=== PATIENT | male | born 1950 | race Caucasian/White ===

== ENCOUNTER 2020-03-31 14:58 | Outpatient (CLI) | payer MEDICARE, SELFPAY ==
[2020-03-31 16:35] LABS: Creatinine Urine, Random 79 mg/dL (39-259); Microalbum Creatinine Ratio Ur 38 mg/dL (0-20); Microalbumin Random Urine 3 ug/dL (0-20)
[2020-03-31 16:41] LABS: Estmated Average Glucose 117; Hemoglobin A1C 5.7 % (4.0-6.0)
[2020-03-31 17:04] LABS: Alanine Aminotransferase 21 U/L (0-41); Albumin Level 4.6 g/dL (3.5-5.2); Alkaline Phosphatase 72 IU/L (40-130); Anion Gap 15.3 (5-19); Aspartate Amino Transferase 27 U/L (0-40); Blood Urea Nitrogen 14 mg/dL (8-23); Calcium 10.3 mg/dL (8.5-10.5); Carbon Dioxide 28 mmol/L (22-29); Chloride 101 mmol/L (98-107); Cholesterol 151 mg/dL (0-200); Globulin 2.3 g/dL (1.3-4.6); Glomerular Filtration Rate 60.2 mL/min (90-130); Glucose 119 mg/dL (65-115); HDL Cholesterol 52 mg/dL (60-100); LDL Cholesterol Calculated 79 mg/dL (50-129); LDL HDL Ratio 1.52 RATIO (0.00-3.22); Osmolality Calculated 292 mOsm/kg (285-295); Potassium 4.3 mmol/L (3.5-5.1); Sodium 140 mmol/L (136-145); Total Bilirubin 0.5 mg/dL (0.15-1.2); Total Protein 6.9 g/dL (6.6-8.7); Triglycerides 102 mg/dL (0-150); Uric Acid 5.8 mg/dL (3.4-7.0)
== END 2020-03-31 14:59 | disposition home or self-care (01) ==
LOC: LAB 14:59
PROVIDERS: Visit Provider Family Medicine
DX: C61 Malignant neoplasm of prostate (principal); M10.9 Gout, unspecified; I10 Essential (primary) hypertension; R73.01 Impaired fasting glucose; E78.5 Hyperlipidemia, unspecified; Z12.5 Encounter for screening for malignant neoplasm of prostate
CPT/HCPCS: 80053; 80061; 82044; 83036; 84153; 84550

== ENCOUNTER → 2023-05-14 08:06 | Outpatient (BNVA) | payer MEDICARE, SELFPAY | PROVIDERS: PCP Nurse Practitioner Family; Visit Provider Nurse Practitioner Family | DX: Z85.820 Personal history of malignant melanoma of skin (principal); L57.0 Actinic keratosis; L82.0 Inflamed seborrheic keratosis; L82.1 Other seborrheic keratosis; L57.8 Other skin changes due to chronic exposure to nonionizing radiation; L81.4 Other melanin hyperpigmentation; D22.4 Melanocytic nevi of scalp and neck | CPT/HCPCS: 17000; 17110; 99213 ==

== ENCOUNTER → 2023-08-14 10:13 | Outpatient (BNVA) | payer MEDICARE, SELFPAY | PROVIDERS: PCP Nurse Practitioner Family; Visit Provider Nurse Practitioner Family | DX: L57.0 Actinic keratosis (principal); L82.0 Inflamed seborrheic keratosis; L82.1 Other seborrheic keratosis; L57.8 Other skin changes due to chronic exposure to nonionizing radiation; L81.4 Other melanin hyperpigmentation; D22.4 Melanocytic nevi of scalp and neck; Z85.828 Personal history of other malignant neoplasm of skin | CPT/HCPCS: 17000; 17110; 99213 ==

== ENCOUNTER 2024-04-12 20:55 | Inpatient (IN) | payer MEDICARE, SELFPAY ==
[2024-04-12 21:25] VITALS: BP 90/61; PULSE 109; RESP 24; TEMP 36.4; O2SAT 88; BMI 29.2
--- NOTE | 2024-04-12 21:40 | CTR_ITS ---
PROCEDURE INFORMATION: Exam: CT Abdomen And Pelvis Without Contrast Exam date and time: 04/12/2024 10:40 PM Age: 73 years old Clinical indication: Nausea and vomiting; Abdominal pain; Generalized; Prior surgery; Surgery date: <1 month; Patient HX: C/O abd pain with n/v and tarry stool. Colon resection 03/31/2024; Additional info: Post op abd pain TECHNIQUE: Imaging protocol: Computed tomography of the abdomen and pelvis without contrast. Radiation optimization: All CT scans at this facility use at least one of these dose optimization techniques: automated exposure control; mA and/or kV adjustment per patient size (includes targeted exams where dose is matched to clinical indication); or iterative reconstruction. COMPARISON: No relevant prior studies available. RADIATION DOSE METRICS: Total DLP (mGy-cm): 1214.38 FINDINGS: Lungs: Moderate [id number]-pced-left posterior atelectasis. Heart: Mild cardiomegaly. No pericardial effusion or pericardial thickening. Liver: Portal venous gas is noted in the liver. The liver is otherwise normal. . Gallbladder and biliary ducts: The gallbladder is normal. There is no ductal dilatation. Pancreas: The pancreas is atrophic without obvious abnormality. Spleen: The spleen is normal. Adrenal glands: The adrenal glands are normal. Kidneys and ureters: 7 mm nonobstructing right upper pole renal calcification. No other renal calculi. No hydronephrosis. Stomach and bowel: Mild colonic diverticulosis without diverticulitis. Status post right hemicolectomy. Diffuse small bowel dilatation consistent with small bowel obstruction. There is pneumatosis of small bowel in the right lower quadrant. Questionable pneumatosis in the proximal duodenal, likely artifactual. The colon is mildly distended and fluid-filled. Appendix: The appendix is surgically absent. Intraperitoneal space: Trace free fluid in the right paracolic gutter. Minimal inflammatory changes or mesenteric edema adjacent to abnormal bowel. No fluid collections. No pneumoperitoneum. Gas is noted in a branch of the superior mesenteric vein (image 75, series 10 . Vasculature: Gas is noted in a branch of the superior mesenteric vein. Atherosclerotic calcifications of the aorta are present. No aneurysm is identified. Lymph nodes: No enlarged lymph nodes are identified. Urinary bladder: The bladder is unremarkable. Reproductive: There is mild prostatomegaly. Bones/joints: No acute osseous abnormalities are seen. Soft tissues: Small bilateral inguinal hernias containing only fat are present. Tiny periumbilical hernia containing only fat. CT/CT abdomen pelvis wo con [id number] IMPRESSION: 1. Small bowel obstruction. Pneumatosis of the small bowel in the right lower quadrant with mesenteric venous gas and portal venous gas in the liver. Emergent surgical consultation is recommended. 2. Questionable pneumatosis in the duodenal is likely artifactual. 3. Other nonemergent findings above.
[2024-04-12 22:00] VITALS: BP 50/31; PULSE 102; RESP 34; O2SAT 92
[2024-04-12] MEDS: sodium chloride 0.9% 1,000 ML 999 ML IV ×2 (22:20→22:25)
[2024-04-12 22:31] LABS: Basophils # 0.1 10^3/uL (0.0-0.1); Basophils % 0.5 %; Eosinophils % 0.1 %; Hematocrit 44.3 % (37-53); Lymphocytes # 1.8 10^3/uL (0.8-4.8); Mean Corpuscular HGB Conc 32.7 g/dL (30-55); Mean Corpuscular Volume 88.6 fl (82-101); Mean Platelet Volume 11.4 fL (7.4-10.4); Monocytes # 1.3 10^3/uL (0.2-0.9); Monocytes % 9.4 %; Neutrophils # 10.71 10^3/uL (1.8-7.7); Neutrophils % 76.4 %; Nucleated Red Blood Cells % 0 %; Platelet Count 430 10^3/cmm (157-399); Red Cell Distribution Width 14.3 % (12.1-15.1); White Blood Count 14.01 10^3/uL (3.29-11.43)
[2024-04-12 22:46] LABS: Alanine Aminotransferase 15 U/L (0-41); Albumin Level 3.5 g/dL (3.5-5.2); Alkaline Phosphatase 70 U/L (40-130); Aspartate Amino Transferase 19 U/L (0-40); Blood Urea Nitrogen 55 mg/dL (8-23); Calcium 8.6 mg/dL (8.5-10.5); Carbon Dioxide 27 mmol/L (22-29); Chloride 92 mmol/L (98-107); Creatinine Clr Calc Pharmacy 28.9586; Globulin 3.4 g/dL (1.3-4.6); Glucose 154 mg/dL (65-115); Osmolality Calculated 306 mOsm/kg (285-295); Sodium 139 mmol/L (136-145); Total Bilirubin 0.7 mg/dL (0.15-1.2); Total Protein 6.9 g/dL (6.6-8.7)
[2024-04-12 22:47] LABS: Lactic Sepsis W/Reflex 3.9 mmol/L (0.5-2.2)
[2024-04-12] MEDS: pantoprazole 40 mg SDV 80 MG IVP (22:48)
[2024-04-12 22:54] LABS: Slide Review Slide Review Perform
--- NOTE | 2024-04-12 23:19 | W.ED.AMS ---
Documented by User: Turner Jones MD 04/13/24 11:41 HPI - Altered Mental Status General: Chief Complaint: Altered Mental Status Stated Complaint: Dehydrated and Passed Out Time Seen by Provider: 04/12/24 21:32 History of Present Illness: This patient is a 73-year-old white male who presents to the emergency department with lethargy and syncopal episode today. He is here with family. His states that he had a colon resection done at [facility] on April 30 to remove multiple polyps. He was evaluated at [facility] in [place] last week had a CT scan done of the abdomen. At that time he was having some black stools. He was transferred to [facility]. He was observed there. His stated that the surgeon said that it is normal to have some black stools following the colon resection. He has had continued black stools and today has been vomiting. No blood in the vomit. He passed out 1 time. No chest pain or shortness of breath. Past medical history significant for hypertension. Related Data Home Medications Medication Instructions Recorded Confirmed allopurinol 100 mg tablet 100 mg PO DAILY 10/27/20 05/15/22 amlodipine 10 mg tablet 10 mg PO DAILY 10/27/20 05/15/22 aspirin 81 mg tablet,delayed 81 mg PO DAILY 10/27/20 05/15/22 release colchicine 0.6 mg tablet 0.6 mg PO TID 10/27/20 05/15/22 fluticasone furoate 50 inhalation 10/27/20 05/15/22 mcg/actuation blister powder for inhalation lisinopril 40 mg tablet 40 mg PO DAILY 10/27/20 05/15/22 rosuvastatin 10 mg tablet 10 mg PO DAILY 10/27/20 05/15/22 Previous Rx's Medication Instructions Recorded ketoconazole 2 % shampoo 1 applic topical .2x weekly #120 mL 05/15/22 Allergies Allergy/AdvReac Type Severity Reaction Status Date / Time No Known Allergies Allergy Verified 04/12/24 21:31 Review of Systems General: Reports: 10 or more systems reviewed and unremarkable except in HPI and below Card: Reports: other (Syncope) GI: Reports: vomiting and melena PFS ED PFSH: Medical History HTN (hypertension) Gout Hyperlipidemia Family History Other Cancer Social History Smoking and tobacco/nicotine status: never used tobacco/nicotine Alcohol intake: current Alcohol intake frequency: 0-2 Drinks per Day Alcohol type: beer Physical Exam Const: OTHER: Initially the patient was quite lethargic and difficult to wake up. After fluid resuscitation he was alert. He states he is in no pain. HENMT: COMMON NORMALS: normocephalic, atraumatic, Normal nasal mucous membranes and turbinates present, moist oral mucous membranes and oropharynx normal HEAD & SCALP: normal to inspection, normocephalic and atraumatic FACE & SINUS: normal facial exam NOSE: Normal nasal mucous membranes and turbinates present Eye: COMMON NORMALS: Equal, round and reactive pupils present, EOMs intact bilaterally and conjunctivae normal GENERAL EYE: appearance normal, both eyes and all related structures CONJUNCTIVA: Yes conjunctivae normal PUPIL: Yes Equal, round and reactive pupils present Neck/C-Spine: COMMON NORMALS: supple and no JVD Chest: COMMONS NORMALS: normal inspection of the chest Resp: COMMON NORMALS: normal respiratory effort and clear to auscultation bilaterally AUSCULTATION: clear to auscultation bilaterally Cardio: COMMON NORMALS: no JVD, regular rate, regular rhythm, No gallops present (Cardio), No murmurs present (Cardio) and No rub (Cardio) RATE: regular rate RHYTHM: regular rhythm GI: COMMON NORMALS: Soft to palpation and non-tender AUSCULTATION: Yes normoactive bowel sounds PALPATION: Yes Soft to palpation OTHER: Large vertical incision over the midline. No erythema. No drainage. : COMMON NORMALS: Yes no CVA tenderness BLADDER/KIDNEY EXAM: Yes no CVA tenderness Back/Pelvis: COMMON NORMALS: no CVA tenderness and thoracic and lumbar spine normal to inspection Extremity: COMMON NORMALS: normal to inspection Neuro: COMMON NORMALS: CN's II-XII intact bilaterally Psych: COMMON NORMALS: mental status grossly normal, Normal thought process present and cooperative THOUGHT PROCESS: Normal thought process present Skin: COMMON NORMALS: no rashes or lesions noted, turgor normal and no jaundice GENERAL SKIN EXAM: no rashes or lesions noted and turgor normal Course Vital Signs: Vital signs: Vital Signs Temperature 99.8 F H 04/13/24 13:05 Pulse Rate 110 H 04/13/24 16:40 Respiratory Rate 20 H 04/13/24 16:40 Blood Pressure 82/64 04/13/24 16:40 Pulse Oximetry 93 04/13/24 16:40 Oxygen Delivery Me thod Mechanical Ventil ation 04/13/24 16:40 Oxygen Flow Rate 10 04/13/24 03:30 Fraction of Inspir ed Oxygen 80 04/13/24 16:40 MDM - Altered Mental Status Medical Decision Making Patient's blood pressure did drop down into the 60s briefly during his ER stay. He has received 2 L of normal saline. His white blood cell count is 14.0. Hemoglobin 14.5. Potassium 3.0. BUN 55 and a creatinine 2.4. Lactic acid 3.9. I did order vancomycin and Zosyn. CT scan of the abdomen pelvis is pending. Urine analysis pending. Patient care was transferred to Terrence Bernabe, nurse practitioner at 11:30 PM. Lab Data 04/13/24 13:03 04/13/24 10:05 Radiology Impressions Abdomen/Pelvis CT 04/12/24 21:40 IMPRESSION: 1. Small bowel obstruction. Pneumatosis of the small bowel in the right lower quadrant with mesenteric venous gas and portal venous gas in the liver. Emergent surgical consultation is recommended. 2. Questionable pneumatosis in the duodenal is likely artifactual. 3. Other nonemergent findings above. ADDENDUM: 04/13/24 0153 ADDENDUM: THIS REPORT CONTAINS FINDINGS THAT MAY BE CRITICAL TO PATIENT CARE. The findings were verbally communicated via telephone conference with Dr. Travis at 1:51 AM CDT on 04/13/2024. The findings were acknowledged and understood. Chest X-Ray 04/13/24 06:52 IMPRESSION: Tubes and lines are in satisfactory positions. Laboratory Results WBC 14.01 10^3/uL (3.29-11.43) H 04/12/24 21:40 RBC 5.00 10^6/uL (3.85-5.65) 04/12/24 21:40 Hgb 14.50 g/dL (11.27-16.99) 04/12/24 21:40 Hct 44.3 % (37-53) 04/12/24 21:40 MCV 88.6 fl (82-101) 04/12/24 21:40 MCH 29.0 pg (27-33) 04/12/24 21:40 MCHC 32.7 g/dL (30-55) 04/12/24 21:40 RDW 14.3 % (12.1-15.1) 04/12/24 21:40 Plt Count 430 10^3/cmm (157-399) H 04/12/24 21:40 MPV 11.4 fL (7.4-10.4) H 04/12/24 21:40 Neut % (Auto) 76.4 % 04/12/24 21:40 Lymph % (Auto) 13.0 % 04/12/24 21:40 [place] % (Auto) 9.4 % 04/12/24 21:40 Eos % (Auto) 0.1 % 04/12/24 21:40 Baso % (Auto) 0.5 % 04/12/24 21:40 Neut # (Auto) 10.71 10^3/uL (1.8-7.7) H 04/12/24 21:40 Lymph # (Auto) 1.8 10^3/uL (0.8-4.8) 04/12/24 21:40 [place] # (Auto) 1.3 10^3/uL (0.2-0.9) H 04/12/24 21:40 Eos # (Auto) 0.0 10^3/uL (0.0-0.8) 04/12/24 21:40 Baso # (Auto) 0.1 10^3/uL (0.0-0.1) 04/12/24 21:40 Nucleated RBC % (auto) 0 % 04/12/24 21:40 Nucleated RBCs # 0.0 /100WBC 04/12/24 21:40 Specimen Type Arterial 04/13/24 04:28 Sample Site Not specified 04/13/24 04:28 ABG pH 7.32 (7.35-7.45) L 04/13/24 04:28 ABG pCO2 37.0 mmHg (35-45) 04/13/24 04:28 ABG pO2 195.0 mmHg (80.0-100.0) H 04/13/24 04:28 ABG PO2/FiO2 Ratio 195 04/13/24 04:28 ABG HCO3 19.0 mmol/L (22-26) L 04/13/24 04:28 ABG Base Excess -6.5 mmol/L (-2.0-2.0) L 04/13/24 04:28 Chris Test N/a 04/13/24 04:28 Hematocrit 34.3 % (42-52) L 04/13/24 04:28 O2 Delivery Device Vent 04/13/24 04:28 FiO2 100.0 % 04/13/24 04:28 Tidal Volume 0.50 04/13/24 04:28 PEEP 10.0 cmH20 04/13/24 04:28 Food Services Manager ID Cesar 04/13/24 04:28 Sodium 139 mmol/L (136-145) 04/12/24 21:40 Potassium 3.0 mmol/L (3.5-5.1) L 04/12/24 21:40 Chloride 92 mmol/L (98-107) L 04/12/24 21:40 Carbon Dioxide 27 mmol/L (22-29) 04/12/24 21:40 Anion Gap 23.0 (5-19) H 04/12/24 21:40 BUN 55 mg/dL (8-23) H 04/12/24 21:40 Creatinine 2.4 mg/dL (0.7-1.2) H 04/12/24 21:40 GFR Calculation Not Reportable 04/12/24 21:40 Glucose 154 mg/dL (65-115) H 04/12/24 21:40 Calculated Osmolality 306 mOsm/kg (285-295) H 04/12/24 21:40 Lactic Acid 3.9 mmol/L (0.5-2.2) H 04/12/24 21:40 Calcium 8.6 mg/dL (8.5-10.5) 04/12/24 21:40 Total Bilirubin 0.7 mg/dL (0.15-1.2) 04/12/24 21:40 AST 19 U/L (0-40) 04/12/24 21:40 ALT 15 U/L (0-41) 04/12/24 21:40 Alkaline Phosphatase 70 U/L (40-130) 04/12/24 21:40 Creatine Kinase 46 U/L (39-308) 04/12/24 21:40 Total Protein 6.9 g/dL (6.6-8.7) 04/12/24 21:40 Albumin 3.5 g/dL (3.5-5.2) 04/12/24 21:40 Globulin 3.4 g/dL (1.3-4.6) 04/12/24 21:40 Urine Color Dark yellow (Yellow) A 04/12/24 12:15 Urine Appearance Cloudy (CLEAR) A 04/12/24 12:15 Urine pH 5.0 (5-7) 04/12/24 12:15 Ur Specific [place] 1.028 (1.005-1.030) 04/12/24 12:15 Urine Protein 2+ (Negative) A 04/12/24 12:15 Urine Glucose (UA) Negative (Normal) 04/12/24 12:15 Urine Ketones Negative (Negative) 04/12/24 12:15 Urine Blood 2+ (Negative) A 04/12/24 12:15 Urine Nitrate Negative (Negative) 04/12/24 12:15 Urine Bilirubin Negative (Negative) 04/12/24 12:15 Urine Urobilinogen 1.0 mg/dL (Negative) 04/12/24 12:15 Ur Leukocyte Esterase Trace (Negative) A 04/12/24 12:15 Urine RBC 21-50 /hpf (0-2) H 04/12/24 12:15 Urine WBC 0-5 /hpf (0-5) 04/12/24 12:15 Ur Squamous Epith Cells 11-20 /hpf (0-5) 04/12/24 12:15 Amorphous Sediment 1+ /hpf 04/12/24 12:15 Urine Bacteria 2+ /hpf (NONE) H 04/12/24 12:15 Hyaline Casts 38.04 /lpf 04/12/24 12:15 Fine Granular Casts 0-4 /lpf H 04/12/24 12:15 Coarse Granular Casts 15-25 /lpf H 04/12/24 12:15 Urine Mucus Trace /hpf 04/12/24 12:15 Blood Type A Positive 04/12/24 21:40 Rho(D) Type Rh positive 04/12/24 21:40 Antibody Screen Negative 04/12/24 21:40 Discharge Plan Discharge Patient Disposition: Admitted As Inpatient Admit Provider: Aaron Junior Clinical Impression: Small bowel obstruction, Ischemic necrosis of small bowel Condition: Critical Coding Level of Care Code ED Field Superintendent for Sandy Fwd Documented by User: JESSICA Butler 04/13/24 00:31 HPI - Altered Mental Status General: Chief Complaint: Altered Mental Status Stated Complaint: Dehydrated and Passed Out Time Seen by Provider: 04/12/24 21:32 Related Data Home Medications Medication Instructions Recorded Confirmed allopurinol 100 mg tablet 100 mg PO DAILY 10/27/20 05/15/22 amlodipine 10 mg tablet 10 mg PO DAILY 10/27/20 05/15/22 aspirin 81 mg tablet,delayed 81 mg PO DAILY 10/27/20 05/15/22 release colchicine 0.6 mg tablet 0.6 mg PO TID 10/27/20 05/15/22 fluticasone furoate 50 inhalation 10/27/20 05/15/22 mcg/actuation blister powder for inhalation lisinopril 40 mg tablet 40 mg PO DAILY 10/27/20 05/15/22 rosuvastatin 10 mg tablet 10 mg PO DAILY 10/27/20 05/15/22 Previous Rx's Medication Instructions Recorded ketoconazole 2 % shampoo 1 applic topical .2x weekly #120 mL 05/15/22 Allergies Allergy/AdvReac Type Severity Reaction Status Date / Time No Known Allergies Allergy Verified 04/12/24 21:31 PFSH ED PFSH: Medical History HTN (hypertension) Gout Hyperlipidemia Family History Other Cancer Social History Smoking and tobacco/nicotine status: never used tobacco/nicotine Alcohol intake: current Alcohol intake frequency: 0-2 Drinks per Day Alcohol type: beer Course Vital Signs: Vital signs: Vital Signs Temperature 99.8 F H 04/13/24 13:05 Pulse Rate 110 H 04/13/24 16:40 Respiratory Rate 20 H 04/13/24 16:40 Blood Pressure 82/64 04/13/24 16:40 Pulse Oximetry 93 04/13/24 16:40 Oxygen Delivery Me thod Mechanical Ventil ation 04/13/24 16:40 Oxygen Flow Rate 10 04/13/24 03:30 Fraction of Inspir ed Oxygen 80 04/13/24 16:40 MDM - Altered Mental Status Medical Decision Making Patient's blood pressure did drop down into the 60s briefly during his ER stay. He has received 2 L of normal saline. His white blood cell count is 14.0. Hemoglobin 14.5. Potassium 3.0. BUN 55 and a creatinine 2.4. Lactic acid 3.9. I did order vancomycin and Zosyn. CT scan of the abdomen pelvis is pending. Urine analysis pending. Patient care was transferred to Terrence Bernabe nurse practitioner at 11:[address] scan of abdomen pelvis, chest x-ray and urinalysis patient has maintained a systolic blood pressure greater than 90. He is alert and oriented and surrounded by family. 2 additional attempts at obtaining a urinalysis unsuccessful. At this hour, 12:45 AM, I am going to transition care to Dr. Travis. Lab Data 04/13/24 13:03 04/13/24 10:05 Radiology Impressions Abdomen/Pelvis CT 04/12/24 21:40 IMPRESSION: 1. Small bowel obstruction. Pneumatosis of the small bowel in the right lower quadrant with mesenteric venous gas and portal venous gas in the liver. Emergent surgical consultation is recommended. 2. Questionable pneumatosis in the duodenal is likely artifactual. 3. Other nonemergent findings above. ADDENDUM: 04/13/24 0153 ADDENDUM: THIS REPORT CONTAINS FINDINGS THAT MAY BE CRITICAL TO PATIENT CARE. The findings were verbally communicated via telephone conference with Dr. Travis at 1:51 AM CDT on 04/13/2024. The findings were acknowledged and understood. Chest X-Ray 04/13/24 06:52 IMPRESSION: Tubes and lines are in satisfactory positions. Laboratory Results WBC 14.01 10^3/uL (3.29-11.43) H 04/12/24 21:40 RBC 5.00 10^6/uL (3.85-5.65) 04/12/24 21:40 Hgb 14.50 g/dL (11.27-16.99) 04/12/24 21:40 Hct 44.3 % (37-53) 04/12/24 21:40 MCV 88.6 fl (82-101) 04/12/24 21:40 MCH 29.0 pg (27-33) 04/12/24 21:40 MCHC 32.7 g/dL (30-55) 04/12/24 21:40 RDW 14.3 % (12.1-15.1) 04/12/24 21:40 Plt Count 430 10^3/cmm (157-399) H 04/12/24 21:40 MPV 11.4 fL (7.4-10.4) H 04/12/24 21:40 Neut % (Auto) 76.4 % 04/12/24 21:40 Lymph % (Auto) 13.0 % 04/12/24 21:40 [place] % (Auto) 9.4 % 04/12/24 21:40 Eos % (Auto) 0.1 % 04/12/24 21:40 Baso % (Auto) 0.5 % 04/12/24 21:40 Neut # (Auto) 10.71 10^3/uL (1.8-7.7) H 04/12/24 21:40 Lymph # (Auto) 1.8 10^3/uL (0.8-4.8) 04/12/24 21:40 [place] # (Auto) 1.3 10^3/uL (0.2-0.9) H 04/12/24 21:40 Eos # (Auto) 0.0 10^3/uL (0.0-0.8) 04/12/24 21:40 Baso # (Auto) 0.1 10^3/uL (0.0-0.1) 04/12/24 21:40 Nucleated RBC % (auto) 0 % 04/12/24 21:40 Nucleated RBCs # 0.0 /100WBC 04/12/24 21:40 Specimen Type Arterial 04/13/24 04:28 Sample Site Not specified 04/13/24 04:28 ABG pH 7.32 (7.35-7.45) L 04/13/24 04:28 ABG pCO2 37.0 mmHg (35-45) 04/13/24 04:28 ABG pO2 195.0 mmHg (80.0-100.0) H 04/13/24 04:28 ABG PO2/FiO2 Ratio 195 04/13/24 04:28 ABG HCO3 19.0 mmol/L (22-26) L 04/13/24 04:28 ABG Base Excess -6.5 mmol/L (-2.0-2.0) L 04/13/24 04:28 Chris Test N/a 04/13/24 04:28 Hematocrit 34.3 % (42-52) L 04/13/24 04:28 O2 Delivery Device Vent 04/13/24 04:28 FiO2 100.0 % 04/13/24 04:28 Tidal Volume 0.50 04/13/24 04:28 PEEP 10.0 cmH20 04/13/24 04:28 Food Services Manager ID Monro 04/13/24 04:28 Sodium 139 mmol/L (136-145) 04/12/24 21:40 Potassium 3.0 mmol/L (3.5-5.1) L 04/12/24 21:40 Chloride 92 mmol/L (98-107) L 04/12/24 21:40 Carbon Dioxide 27 mmol/L (22-29) 04/12/24 21:40 Anion Gap 23.0 (5-19) H 04/12/24 21:40 BUN 55 mg/dL (8-23) H 04/12/24 21:40 Creatinine 2.4 mg/dL (0.7-1.2) H 04/12/24 21:40 GFR Calculation Not Reportable 04/12/24 21:40 Glucose 154 mg/dL (65-115) H 04/12/24 21:40 Calculated Osmolality 306 mOsm/kg (285-295) H 04/12/24 21:40 Lactic Acid 3.9 mmol/L (0.5-2.2) H 04/12/24 21:40 Calcium 8.6 mg/dL (8.5-10.5) 04/12/24 21:40 Total Bilirubin 0.7 mg/dL (0.15-1.2) 04/12/24 21:40 AST 19 U/L (0-40) 04/12/24 21:40 ALT 15 U/L (0-41) 04/12/24 21:40 Alkaline Phosphatase 70 U/L (40-130) 04/12/24 21:40 Creatine Kinase 46 U/L (39-308) 04/12/24 21:40 Total Protein 6.9 g/dL (6.6-8.7) 04/12/24 21:40 Albumin 3.5 g/dL (3.5-5.2) 04/12/24 21:40 Globulin 3.4 g/dL (1.3-4.6) 04/12/24 21:40 Urine Color Dark yellow (Yellow) A 04/12/24 12:15 Urine Appearance Cloudy (CLEAR) A 04/12/24 12:15 Urine pH 5.0 (5-7) 04/12/24 12:15 Ur Specific [place] 1.028 (1.005-1.030) 04/12/24 12:15 Urine Protein 2+ (Negative) A 04/12/24 12:15 Urine Glucose (UA) Negative (Normal) 04/12/24 12:15 Urine Ketones Negative (Negative) 04/12/24 12:15 Urine Blood 2+ (Negative) A 04/12/24 12:15 Urine Nitrate Negative (Negative) 04/12/24 12:15 Urine Bilirubin Negative (Negative) 04/12/24 12:15 Urine Urobilinogen 1.0 mg/dL (Negative) 04/12/24 12:15 Ur Leukocyte Esterase Trace (Negative) A 04/12/24 12:15 Urine RBC 21-50 /hpf (0-2) H 04/12/24 12:15 Urine WBC 0-5 /hpf (0-5) 04/12/24 12:15 Ur Squamous Epith Cells 11-20 /hpf (0-5) 04/12/24 12:15 Amorphous Sediment 1+ /hpf 04/12/24 12:15 Urine Bacteria 2+ /hpf (NONE) H 04/12/24 12:15 Hyaline Casts 38.04 /lpf 04/12/24 12:15 Fine Granular Casts 0-4 /lpf H 04/12/24 12:15 Coarse Granular Casts 15-25 /lpf H 04/12/24 12:15 Urine Mucus Trace /hpf 04/12/24 12:15 Blood Type A Positive 04/12/24 21:40 Rho(D) Type Rh positive 04/12/24 21:40 Antibody Screen Negative 04/12/24 21:40 XR interpretation done by ED provider, pending radiology final review Discharge Plan Discharge Patient Disposition: Admitted As Inpatient Admit Provider: Aaron Junior Clinical Impression: Small bowel obstruction, Ischemic necrosis of small bowel Condition: Critical Coding Level of Care Code ED Field Superintendent for Chg Fwd Documented by User: Juice Travis DO 04/13/24 16:56 HPI - Altered Mental Status General: Chief Complaint: Altered Mental Status Stated Complaint: Dehydrated and Passed Out Time Seen by Provider: 04/12/24 21:32 Related Data Home Medications Medication Instructions Recorded Confirmed allopurinol 100 mg tablet 100 mg PO DAILY 10/27/20 05/15/22 amlodipine 10 mg tablet 10 mg PO DAILY 10/27/20 05/15/22 aspirin 81 mg tablet,delayed 81 mg PO DAILY 10/27/20 05/15/22 release colchicine 0.6 mg tablet 0.6 mg PO TID 10/27/20 05/15/22 fluticasone furoate 50 inhalation 10/27/20 05/15/22 mcg/actuation blister powder for inhalation lisinopril 40 mg tablet 40 mg PO DAILY 10/27/20 05/15/22 rosuvastatin 10 mg tablet 10 mg PO DAILY 10/27/20 05/15/22 Previous Rx's Medication Instructions Recorded ketoconazole 2 % shampoo 1 applic topical .2x weekly #120 mL 05/15/22 Allergies Allergy/AdvReac Type Severity Reaction Status Date / Time No Known Allergies Allergy Verified 04/12/24 21:31 [facility] ED PFSH: Medical History HTN (hypertension) Gout Hyperlipidemia Family History Other Cancer Social History Smoking and tobacco/nicotine status: never used tobacco/nicotine Alcohol intake: current Alcohol intake frequency: 0-2 Drinks per Day Alcohol type: beer Course Vital Signs: Vital signs: Vital Signs Temperature 99.8 F H 04/13/24 13:05 Pulse Rate 110 H 04/13/24 16:40 Respiratory Rate 20 H 04/13/24 16:40 Blood Pressure 82/64 04/13/24 16:40 Pulse Oximetry 93 04/13/24 16:40 Oxygen Delivery Me thod Mechanical Ventil ation 04/13/24 16:40 Oxygen Flow Rate 10 04/13/24 03:30 Fraction of Inspir ed Oxygen 80 04/13/24 16:40 MDM - Altered Mental Status Medical Decision Making Patient's blood pressure did drop down into the 60s briefly during his ER stay. He has received 2 L of normal saline. His white blood cell count is 14.0. Hemoglobin 14.5. Potassium 3.0. BUN 55 and a creatinine 2.4. Lactic acid 3.9. I did order vancomycin and Zosyn. CT scan of the abdomen pelvis is pending. Urine analysis pending. Patient care was transferred to Terrence Bernabe, nurse practitioner at 11:[address] scan of abdomen pelvis, chest x-ray and urinalysis patient has maintained a systolic blood pressure greater than 90. He is alert and oriented and surrounded by family. 2 additional attempts at obtaining a urinalysis unsuccessful. At this hour, 12:45 AM, I am going to transition care to Dr. Travis. Significant delay in getting CT results due to radiology over read back up. Consulted with surgery regarding CT findings of small bowel obstruction with pneumatosis of the small bowel in the right lower quadrant with mesenteric venous gas and portal venous gas. He is coming in to see the patient. Patient's blood pressure has been soft despite essentially 3 L of fluid, which is more than a 30mL per Kg sepsis calculated bolus for this gentleman. Currently 83/50. Starting pressors, Levophed. He is awake and talking, and his mental status is intact at this point. KCL is being repleated as well. Surgery decision to take the patient directly to the OR from the ER. Surgery team called in. Anesthesia is here to take the patient. Prognosis is poor/ difficult, as this is a very sick gentleman. I as well as a surgeon have informed the patient and the family of this. He'll go to the ICU following surgery. Ng tube will be placed in surgery after anesthesia, is has been difficult to place on this patient in the past. The hospitalist has been consulted as well, and will see the patient. Lab Data 04/13/24 13:03 04/13/24 10:05 Radiology Impressions Abdomen/Pelvis CT 04/12/24 21:40 IMPRESSION: 1. Small bowel obstruction. Pneumatosis of the small bowel in the right lower quadrant with mesenteric venous gas and portal venous gas in the liver. Emergent surgical consultation is recommended. 2. Questionable pneumatosis in the duodenal is likely artifactual. 3. Other nonemergent findings above. ADDENDUM: 04/13/24 0153 ADDENDUM: THIS REPORT CONTAINS FINDINGS THAT MAY BE CRITICAL TO PATIENT CARE. The findings were verbally communicated via telephone conference with Dr. Travis at 1:51 AM CDT on 04/13/2024. The findings were acknowledged and understood. Chest X-Ray 04/13/24 06:52 IMPRESSION: Tubes and lines are in satisfactory positions. Laboratory Results WBC 14.01 10^3/uL (3.29-11.43) H 04/12/24 21:40 RBC 5.00 10^6/uL (3.85-5.65) 04/12/24 21:40 Hgb 14.50 g/dL (11.27-16.99) 04/12/24 21:40 Hct 44.3 % (37-53) 04/12/24 21:40 MCV 88.6 fl (82-101) 04/12/24 21:40 MCH 29.0 pg (27-33) 04/12/24 21:40 MCHC 32.7 g/dL (30-55) 04/12/24 21:40 RDW 14.3 % (12.1-15.1) 04/12/24 21:40 Plt Count 430 10^3/cmm (157-399) H 04/12/24 21:40 MPV 11.4 fL (7.4-10.4) H 04/12/24 21:40 Neut % (Auto) 76.4 % 04/12/24 21:40 Lymph % (Auto) 13.0 % 04/12/24 21:40 [place] % (Auto) 9.4 % 04/12/24 21:40 Eos % (Auto) 0.1 % 04/12/24 21:40 Baso % (Auto) 0.5 % 04/12/24 21:40 Neut # (Auto) 10.71 10^3/uL (1.8-7.7) H 04/12/24 21:40 Lymph # (Auto) 1.8 10^3/uL (0.8-4.8) 04/12/24 21:40 [place] # (Auto) 1.3 10^3/uL (0.2-0.9) H 04/12/24 21:40 Eos # (Auto) 0.0 10^3/uL (0.0-0.8) 04/12/24 21:40 Baso # (Auto) 0.1 10^3/uL (0.0-0.1) 04/12/24 21:40 Nucleated RBC % (auto) 0 % 04/12/24 21:40 Nucleated RBCs # 0.0 /100WBC 04/12/24 21:40 Specimen Type Arterial 04/13/24 04:28 Sample Site Not specified 04/13/24 04:28 ABG pH 7.32 (7.35-7.45) L 04/13/24 04:28 ABG pCO2 37.0 mmHg (35-45) 04/13/24 04:28 ABG pO2 195.0 mmHg (80.0-100.0) H 04/13/24 04:28 ABG PO2/FiO2 Ratio 195 04/13/24 04:28 ABG HCO3 19.0 mmol/L (22-26) L 04/13/24 04:28 ABG Base Excess -6.5 mmol/L (-2.0-2.0) L 04/13/24 04:28 Chris Test N/a 04/13/24 04:28 Hematocrit 34.3 % (42-52) L 04/13/24 04:28 O2 Delivery Device Vent 04/13/24 04:28 FiO2 100.0 % 04/13/24 04:28 Tidal Volume 0.50 04/13/24 04:28 PEEP 10.0 cmH20 04/13/24 04:28 Food Services Manager ID Cesar 04/13/24 04:28 Sodium 139 mmol/L (136-145) 04/12/24 21:40 Potassium 3.0 mmol/L (3.5-5.1) L 04/12/24 21:40 Chloride 92 mmol/L (98-107) L 04/12/24 21:40 Carbon Dioxide 27 mmol/L (22-29) 04/12/24 21:40 Anion Gap 23.0 (5-19) H 04/12/24 21:40 BUN 55 mg/dL (8-23) H 04/12/24 21:40 Creatinine 2.4 mg/dL (0.7-1.2) H 04/12/24 21:40 GFR Calculation Not Reportable 04/12/24 21:40 Glucose 154 mg/dL (65-115) H 04/12/24 21:40 Calculated Osmolality 306 mOsm/kg (285-295) H 04/12/24 21:40 Lactic Acid 3.9 mmol/L (0.5-2.2) H 04/12/24 21:40 Calcium 8.6 mg/dL (8.5-10.5) 04/12/24 21:40 Total Bilirubin 0.7 mg/dL (0.15-1.2) 04/12/24 21:40 AST 19 U/L (0-40) 04/12/24 21:40 ALT 15 U/L (0-41) 04/12/24 21:40 Alkaline Phosphatase 70 U/L (40-130) 04/12/24 21:40 Creatine Kinase 46 U/L (39-308) 04/12/24 21:40 Total Protein 6.9 g/dL (6.6-8.7) 04/12/24 21:40 Albumin 3.5 g/dL (3.5-5.2) 04/12/24 21:40 Globulin 3.4 g/dL (1.3-4.6) 04/12/24 21:40 Urine Color Dark yellow (Yellow) A 04/12/24 12:15 Urine Appearance Cloudy (CLEAR) A 04/12/24 12:15 Urine pH 5.0 (5-7) 04/12/24 12:15 Ur Specific [place] 1.028 (1.005-1.030) 04/12/24 12:15 Urine Protein 2+ (Negative) A 04/12/24 12:15 Urine Glucose (UA) Negative (Normal) 04/12/24 12:15 Urine Ketones Negative (Negative) 04/12/24 12:15 Urine Blood 2+ (Negative) A 04/12/24 12:15 Urine Nitrate Negative (Negative) 04/12/24 12:15 Urine Bilirubin Negative (Negative) 04/12/24 12:15 Urine Urobilinogen 1.0 mg/dL (Negative) 04/12/24 12:15 Ur Leukocyte Esterase Trace (Negative) A 04/12/24 12:15 Urine RBC 21-50 /hpf (0-2) H 04/12/24 12:15 Urine WBC 0-5 /hpf (0-5) 04/12/24 12:15 Ur Squamous Epith Cells 11-20 /hpf (0-5) 04/12/24 12:15 Amorphous Sediment 1+ /hpf 04/12/24 12:15 Urine Bacteria 2+ /hpf (NONE) H 04/12/24 12:15 Hyaline Casts 38.04 /lpf 04/12/24 12:15 Fine Granular Casts 0-4 /lpf H 04/12/24 12:15 Coarse Granular Casts 15-25 /lpf H 04/12/24 12:15 Urine Mucus Trace /hpf 04/12/24 12:15 Blood Type A Positive 04/12/24 21:40 Rho(D) Type Rh positive 04/12/24 21:40 Antibody Screen Negative 04/12/24 21:40 Critical Care Time Critical Care Time: Critical Care Time: Yes Total Critical Care Time: 40 Attestation: This case had a high probability of a clinically significant, sudden, or life threatening deterioration of this patient's condition which required my full and direct attention, intervention and personal management. Time does not include procedures performed. Discharge Plan Discharge Patient Disposition: Admitted As Inpatient Admit Provider: Aaron Junior Clinical Impression: Small bowel obstruction, Ischemic necrosis of small bowel Condition: Critical Coding Level of Care Code ED Field Superintendent for Chg Edi
--- NOTE | 2024-04-12 23:24 | XRR_ITS ---
PROCEDURE INFORMATION: Exam: XR Chest Exam date and time: 04/12/2024 11:33 PM Age: 73 years old Clinical indication: Shortness of breath; Patient HX: SOB with hypotension; Additional info: Sepsis TECHNIQUE: Imaging protocol: Radiologic exam of the chest. Views: 1 view. COMPARISON: CT abdomen pelvis wo con [id number] 04/12/2024 10:40 PM FINDINGS: Lungs: Low lung volumes with basilar atelectasis. No consolidation. Pleural spaces: No pleural effusion or pneumothorax. Heart/Mediastinum: The cardiomediastinal silhouette is within normal limits. Bones/joints: No acute osseous abnormalities are seen. XR/XR chest 1V portable [id number] IMPRESSION: No acute cardiopulmonary disease.
[2024-04-12 23:30] VITALS: BP 67/42; O2SAT 90
[2024-04-12] MEDS: piperacillin-tazobactam 4.5 GM in sodium chloride 0.9% (plus) 50 ML IV (23:52)
[2024-04-13] VITALS (190 sets, daily range): BP systolic 64–130; BP diastolic 40–87; PULSE 84–132; RESP 12–33; TEMP 37.6–37.7; O2SAT 81–100
[2024-04-13 00:15] LABS: Reflex Lactate Order REFLEX LACTIC ORDERD
[2024-04-13] MEDS: vancomycin 1,250 MG/250 ML PIGGYBACK 166.67 MG IV (00:15)
[2024-04-13] MEDS: sodium chloride 0.9% 1,000 ML 999 ML IV ×2 (01:37→12:55)
[2024-04-13] MEDS: norepinephrine 4 MG/250 ML BAG 30 MG IV (02:08)
[2024-04-13] MEDS: lidocaine 1% 5 ML in potassium chloride premix 100 ML 26.25 ML IV ×2 (02:22→10:08)
--- NOTE | 2024-04-13 02:51 | P.CONIM_ITS ---
Providers/Reason For Consult 2 Consulting Physician/Specialty*: General Surgery Reason for Consult*: Small bowel obstruction with ischemia Primary Care Provider: ADELAIDA Grant History of Present Illness History of Present Illness Carlitos Aden is a 73 year old male with history of breast and minimally invasive right hemicolectomy for colon polyps. He was operated on March 31, after being discharged from the hospital he developed abdominal distention Metalyse and he returned to the hospital the following week he was kept in observation and after improvement he was discharged home, over the last 2 days he has been having several liquid bowel movements has been having vomit and in addition to that he has become lethargic and dizzy. Upon presentation to the emergency department he was noted to be tachycardic, elevated lactate level and elevated white count. A CT scan of the abdomen pelvis was obtained and it showed evidence of a small bowel obstruction with findings concerning for pneumatosis at the level of the right lower quadrant as well as mesenteric vein gas and portal gas in the liver. I was consulted for this findings. On my arrival patient is alert and oriented, endorses some mild to moderate abdominal pain in the right lower quadrant. Explained that he has been since having several bowel movements that were black but currently they are brown. Denies fever or chills Review of Systems 2 General: Reports: 10 or more systems reviewed and unremarkable except in HPI and below Medications/Allergies Home Medications Medication Instructions Recorded Confirmed Last Taken Type allopurinol 100 mg tablet 100 mg PO DAILY 10/27/20 05/15/22 Unknown History amlodipine 10 mg tablet 10 mg PO DAILY 10/27/20 05/15/22 Unknown History aspirin 81 mg tablet,delayed 81 mg PO DAILY 10/27/20 05/15/22 Unknown History release colchicine 0.6 mg tablet 0.6 mg PO TID 10/27/20 05/15/22 Unknown History fluticasone furoate 50 inhalation 10/27/20 05/15/22 Unknown History mcg/actuation blister powder for inhalation lisinopril 40 mg tablet 40 mg PO DAILY 10/27/20 05/15/22 Unknown History rosuvastatin 10 mg tablet 10 mg PO DAILY 10/27/20 05/15/22 Unknown History ketoconazole 2 % shampoo 1 applic topical .2x weekly #120 mL 05/15/22 05/15/22 Unknown Rx Allergies Allergy/AdvReac Type Severity Reaction Status Date / Time No Known Allergies Allergy Verified 04/12/24 21:31 Current Medications Generic Name Dose Route Start Last Admin Trade Name Freq PRN Reason Stop Dose Admin Norepinephrine Bitartrate 4 mg in 250 mls @ 0 mls/hr 04/13/24 01:30 04/13/24 02:08 Levophed IV 8 mcg/min .Q0M CHRISTIE 30 mls/hr Administration Protocol Per Protocol Lidocaine HCl 5 ml/ Potassium 105 mls @ 26.25 mls/hr 04/13/24 02:00 04/13/24 02:22 Chloride IV 04/13/24 05:59 26.25 mls/hr ONCE ONE Administration PFSH Acute 2 PFSH: Medical History Gout HTN (hypertension) Hyperlipidemia Family History Other Cancer Social History Smoking and tobacco/nicotine status: never used tobacco/nicotine Alcohol intake: current Alcohol intake frequency: 0-2 Drinks per Day Alcohol type: beer Vitals/I&O/Wt Last Vital Signs Temp 97.6 F 04/12/24 21:25 Pulse 84 04/13/24 01:45 Resp 26 H 04/13/24 01:45 BP 73/45 04/13/24 01:45 Pulse Ox 90 04/13/24 01:45 O2 Del Method Nasal Cannula 04/13/24 01:45 O2 Flow Rate 6 04/13/24 01:45 04/12/24 04/12/24 04/13/24 14:59 22:59 06:59 Intake Total 2300 / 2300 Balance 2300 / 2300 Weight last 48 hrs Weight 187 lb Physical Exam 2 GI: OTHER: Abdomen is distended there, moderately tender in the right lower quadrant, there is a surgical incision in the midline measuring about 2 cm which appears to be well-healed there is additional small incisions in the lower abdomen. No peritoneal signs no rebound at this time Data 04/12/24 21:40 04/12/24 21:40 Micro: Microbiology 04/12/24 22:37 Blood Culture - Preliminary Blood SPECIMEN COLLECTED 04/12/24 22:27 Blood Culture - Preliminary Blood SPECIMEN COLLECTED A&P Assessment and plan (1) Ischemic necrosis of small bowel: (2) Acute kidney injury: (3) Sepsis: (4) Small bowel obstruction: Plan After complete history, physical examination and review of all available clinical data the following is my assessment. This is a 73-year-old male who presents to the hospital with sepsis and small bowel obstruction in the setting of recent history of minimally invasive right hemicolectomy. Patient is in poor clinical condition, noted to be hypotensive, has acute kidney injury and imaging findings side suggestive of ischemic changes at the level of the intestine as well as portal venous gas. I have explained to the patient and family members that unfortunately with this findings the only option that we have is to proceed to the OR for exploration. I have explained to the patient and family members that patients presenting with bowel obstruction pneumatosis and portal venous gas about mortality rate of about 70 to 80% during the same hospital stay. In addition, patient is currently deconditioned after having recent intra-abdominal surgery which raises the probability of morbidity or mortality. I have discussed all recent benefits of the operation, I have discussed the risks of bleeding, injury to surrounding structures, hernia formation, I have explained that we will likely proceed with bowel resection and leave with the abdomen open to come back on the second look operation, is a high probability of the patient will end up with a colostomy or ileostomy in the long-term. In addition, there is increased probability of injury to surrounding structures due to history of recent surgery, patient is also at increased risk for enteral cutaneous or enteroatmospheric fistula creation. Patient family members agree with the plan and wished to proceed. I have reiterated to the family that this is done as an emergent life-saving operation but the chances of morbidity and mortality are extremely high. Patient will require ICU stay after surgery, patient will be admitted to our hospitalist team for management of the sepsis and acute kidney injury in the setting of the small bowel obstruction with ischemic bowel changes. We will proceed with NG tube placement, likely place a Carey catheter once the patient is in the OR. In the interim we will continue current resuscitation as guided by the emergency department. -On-call to the OR for exploratory laparotomy -NG tube placement -Continue current resuscitation guided by ER team -Appreciate all other management per medical ICU team Coding Level of Care Code Acute Code for Chg Fwd Diagnoses Ischemic necrosis of small bowel K55.029 Acute kidney injury N17.9 Sepsis A41.9 Small bowel obstruction K56.609
--- NOTE | 2024-04-13 02:55 | ECG_ITS ---
[facility] Test Date: 2024-04-13 Pat Name: Carlitos Aden Department: Room: Gender: Male [employer]: : 1950 Requested By: Terrence Randall Order Number: [id number] Lizy MD: Alvarado Montana M.D. Measurements Intervals [place] Rate: 89 P: 57 SD: 141 QRS: 7 QRSD: 101 T: 28 QT: 385 QTc: 471 Interpretive Statements SINUS RHYTHM WITH OCCASIONAL SUPRAVENTRICULAR PREMATURE COMPLEXES NONSPECIFIC T-WAVE ABNORMALITY No previous ECG available for comparison Electronically Signed On 04-14-2024 14:10:51 CDT by Alvarado Montana M.D. [email or web address]
--- NOTE | 2024-04-13 03:02 | ANES.PREANE2 ---
Pre-Anesthetic Assessment Height/Weight: Height 5 ft 7 in Weight 187 lb Temp Pulse Resp BP Pulse Ox O2 Del Method O2 Flow Rate 97.6 F 84 26 H 73/45 90 Nasal Cannula 6 04/12/24 21:25 04/13/24 01:45 04/13/24 01:45 04/13/24 01:45 04/13/24 01:45 04/13/24 01:45 04/13/24 01:45 Preop Diagnosis: Small bowel obstruction Was Beta Araceli taken within 24 hours: N/A Was Clonidine taken within 24 hours: N/A Last Intake: 21:00 Social No alcohol and No tobacco Exam alert, oriented x 3, clear to auscultation bilaterally and regular rate & rhythm Airway Submandibular: within normal limits Cervical ROM: within normal limits Mallampati: Class II Dentition: false Anesthetic Plan ASA status: 4E Anesthesia: General Other: Patient initially presented to the ED with lethargy and a syncopal episode earlier in the day. Patient recently had a colon resection at [facility] on April 30, last week was experiencing abdominal pain/black stools and was admitted to [facility] but was discharged home CT imaging showing small bowel obstruction today History of hypertension on amlodipine and lisinopril Patient denies any respiratory issues Patient hypotensive in the ER, BP 73/45. Currently on Levophed at 8 mcg/h. Systolic BP in the 90s Labs reviewed, WBC 14, hemoglobin 14.5, sodium 139, potassium 3.0, creatinine 2.4 EKG showing sinus rhythm with PVCs Patient drank water around 9 PM and had nothing to eat since earlier in the day. Spoke with patient, his and children that he will most likely remain intubated and sedated and taken to the ICU following procedure. We spoke about risk of anesthesia and patient acknowledges. Plan for GETA with RSI. Will obtain second IV and arterial line. Possible CVC placement IntraOp following procedure. Medications/Allergies Home Medications Medication Instructions Recorded Confirmed Last Taken Type allopurinol 100 mg tablet 100 mg PO DAILY 10/27/20 05/15/22 Unknown History amlodipine 10 mg tablet 10 mg PO DAILY 10/27/20 05/15/22 Unknown History aspirin 81 mg tablet,delayed 81 mg PO DAILY 10/27/20 05/15/22 Unknown History release colchicine 0.6 mg tablet 0.6 mg PO TID 10/27/20 05/15/22 Unknown History fluticasone furoate 50 inhalation 10/27/20 05/15/22 Unknown History mcg/actuation blister powder for inhalation lisinopril 40 mg tablet 40 mg PO DAILY 10/27/20 05/15/22 Unknown History rosuvastatin 10 mg tablet 10 mg PO DAILY 10/27/20 05/15/22 Unknown History ketoconazole 2 % shampoo 1 applic topical .2x weekly #120 mL 05/15/22 05/15/22 Unknown Rx Allergies Allergy/AdvReac Type Severity Reaction Status Date / Time No Known Allergies Allergy Verified 04/12/24 21:31 Current Medications Generic Name Dose Route Start Last Admin Trade Name Freq PRN Reason Stop Dose Admin Norepinephrine Bitartrate 4 mg in 250 mls @ 0 mls/hr 04/13/24 01:30 04/13/24 02:08 Levophed IV 8 mcg/min .Q0M CHRISTIE 30 mls/hr Administration Protocol Per Protocol Lidocaine HCl 5 ml/ Potassium 105 mls @ 26.25 mls/hr 04/13/24 02:00 04/13/24 02:22 Chloride IV 04/13/24 05:59 26.25 mls/hr ONCE ONE Administration [facility] Anesthesia Medical History Gout HTN (hypertension) Hyperlipidemia Family History Other Cancer Social History Smoking and tobacco/nicotine status: never used tobacco/nicotine Alcohol intake: current Alcohol intake frequency: 0-2 Drinks per Day Alcohol type: beer Data Anesthesia 04/12/24 21:40 04/12/24 21:40 Short CBC 04/12/24 Range/Units 21:40 WBC 14.01 H (3.29-11.43) 10^3/uL Hgb 14.50 (11.27-16.99) g/dL Hct 44.3 (37-53) % MCV 88.6 (82-101) fl Plt Count 430 H (157-399) 10^3/cmm Neut % (Auto) 76.4 % Neut # (Auto) 10.71 H (1.8-7.7) 10^3/uL BMP 04/12/24 21:40 Sodium 139 Potassium 3.0 L Chloride 92 L Carbon Dioxide 27 BUN 55 H Creatinine 2.4 H Glucose 154 H Calcium 8.6 Liver Function 04/12/24 Range/Units 21:40 Total Bilirubin 0.7 (0.15-1.2) mg/dL AST 19 (0-40) U/L ALT 15 (0-41) U/L Alkaline Phosphatase 70 (40-130) U/L Albumin 3.5 (3.5-5.2) g/dL Blood Bank 04/12/24 21:40 Blood Type A Positive Rho(D) Type Rh positive Antibody Screen Negative Microbiology 04/12/24 22:37 Blood Culture - Preliminary Blood SPECIMEN COLLECTED 04/12/24 22:27 Blood Culture - Preliminary Blood SPECIMEN COLLECTED Cardiac Studies: No Data to Display
--- NOTE | 2024-04-13 03:50 | P.HP_ITS ---
Providers/Chief Complaint 2 Primary Care Provider: ADELAIDA Grant Chief Complaint: Dehydrated and Passed Out History of Present Illness Very pleasant 74-year-old gentleman presented to the hospital due to abdominal pain, loose also dark stools in the last 2 days, vomiting, with abdominal distention, lethargy, dizziness. 2 weeks ago, he had a right hemicolectomy for polyps performed in [place] on March 31. In ER on assessment he was hypotensive, blood pressure down as low as 67/42, with leukocytosis 14, lactic acidosis 3.9, CT abdomen pelvis with small bowel obstruction, pneumatosis of the right small bowel in the right lower quadrant with mesenteric venous gas and portal venous gas in the liver. Questionable pneumatosis in the duodenum is likely artifactual. Other nonemergent findings. He is also found to have acute kidney injury, BUN 55, creatinine 2.4, potassium 3, chloride 92, anion gap 23, bicarb 27. He is requiring 10 L high flow nasal cannula oxygen with abdominal distention. Has not had any respiratory symptoms. No chest pain or pressure. No history of lung disease. Chest x-ray is unremarkable. He was seen by surgery with plans for emergent exploratory laparotomy, high risk procedure as discussed with patient and family, and with anticipated likely difficult recovery given presenting condition and comorbidities, still elevated risk of mortality, considering the alternative of not intervening, patient and family wants to proceed with emergent procedure possible subsequent additional staged interventions, appreciating the risks involved both ways. Review of Systems 2 Const: Denies: fever(s), chills, body aches or malaise Eyes: Denies: change in vision ENMT: Denies: throat pain Card: Denies: chest pain, edema or dyspnea on exertion Resp: Denies: dyspnea, productive cough, change in phlegm color or hemoptysis GI: Reports: abdominal pain, diarrhea, bloating and melena; Denies: nausea, vomiting, constipation or hematochezia : Denies: flank pain, difficulty urinating, urinary frequency or hematuria Musc: Denies: back pain, joint swelling or joint redness Skin/Breast: Denies: rash Neuro: Denies: headache(s) or dizziness Medications/Allergies Home Medications Medication Instructions Recorded Confirmed Last Taken Type allopurinol 100 mg tablet 100 mg PO DAILY 10/27/20 05/15/22 Unknown History amlodipine 10 mg tablet 10 mg PO DAILY 10/27/20 05/15/22 Unknown History aspirin 81 mg tablet,delayed 81 mg PO DAILY 10/27/20 05/15/22 Unknown History release colchicine 0.6 mg tablet 0.6 mg PO TID 10/27/20 05/15/22 Unknown History fluticasone furoate 50 inhalation 10/27/20 05/15/22 Unknown History mcg/actuation blister powder for inhalation lisinopril 40 mg tablet 40 mg PO DAILY 10/27/20 05/15/22 Unknown History rosuvastatin 10 mg tablet 10 mg PO DAILY 10/27/20 05/15/22 Unknown History ketoconazole 2 % shampoo 1 applic topical .2x weekly #120 mL 05/15/22 05/15/22 Unknown Rx Allergies Allergy/AdvReac Type Severity Reaction Status Date / Time No Known Allergies Allergy Verified 04/12/24 21:31 PFSH Acute 2 PFSH: Medical History HTN (hypertension) Gout Hyperlipidemia Family History Other Cancer Social History Smoking and tobacco/nicotine status: never used tobacco/nicotine Alcohol intake: current Alcohol intake frequency: 0-2 Drinks per Day Alcohol type: beer Vitals/I&O/Wt Last Vital Signs Temp 97.6 F 04/12/24 21:25 Pulse 97 04/13/24 03:34 Resp 30 H 04/13/24 03:34 BP 89/57 04/13/24 03:34 Pulse Ox 89 L 04/13/24 03:30 O2 Del Method High Flow Nasal Cannula 04/13/24 03:30 O2 Flow Rate 10 04/13/24 03:30 04/12/24 04/12/24 04/13/24 14:59 22:59 06:59 Intake Total 2300 / 2300 Balance 2300 / 2300 Weight last 48 hrs Weight 84.822 kg Physical Exam 2 Narrative: Accompanied by his family, his and sons. Pale, ill-appearing. Const: COMMON NORMALS: patient oriented x3 and alert GENERAL APPEARANCE: c ooperative ORIENTATION/CONSCIOUSNESS: Yes awake HENMT: COMMON NORMALS: oropharynx normal Neck/C-Spine: COMMON NORMALS: no JVD Resp: COMMON NORMALS: normal respiratory effort and clear to auscultation bilaterally AUSCULTATION: clear to auscultation bilaterally Cardio: COMMON NORMALS: no JVD, regular rhythm, S1 normal heart sound present, S2 normal heart sound present and No murmurs present (Cardio) RHYTHM: regular rhythm HEART SOUNDS: S1 normal heart sound present and S2 normal heart sound present GI: INSPECTION: Yes abdominal wall ecchymosis, Yes abdominal distension and Yes incision (Midline) Inspection of incision: healing well AUSCULTATION: Yes Hypoactive bowel sounds present PALPATION: Yes Firmness to palpation present (GI) Extremity: COMMON NORMALS: no joint enlargement and no pedal edema Neuro: COMMON NORMALS: patient oriented x3 and moves all extremities S ENSORIUM/ORIENTATION: Yes alert Skin: COMMON NORMALS: no rashes or lesions noted GENERAL SKIN EXAM: no rashes or lesions noted Data 04/12/24 21:40 04/12/24 21:40 Micro: Microbiology 04/12/24 22:37 Blood Culture - Preliminary Blood SPECIMEN COLLECTED 04/12/24 22:27 Blood Culture - Preliminary Blood SPECIMEN COLLECTED A&P Assessment and plan (1) Ischemic necrosis of small bowel: Ischemic necrosis of small bowel with small bowel obstruction, septic shock, with pneumatosis of the small bowel in the right lower quadrant with mesenteric venous gas and portal venous gas in the liver. Questionable pneumatosis in the duodenum likely artifactual. Status post right hemicolectomy for concerning polyps on March 31 in [place]. Reviewed vitals, CBC, CMP, lactic acid, EKG, on my interpretation sinus rhythm, pending official read, chest x-ray, CT abdomen pelvis, discussed with ER provider, discussed with surgeon. Going for emergent exploratory laparotomy with high risks likely requiring staged procedure, although high risk of mortality without intervention, understanding all this patient and family are choosing to proceed. He is in concomitant respiratory failure with hypoxia likely secondary to hypoventilation with severe abdominal distention, without known underlying lung disease, has not had any chest pain or pressure, no history hemoptysis, cough, lower extremity edema. This is also complicated by acute kidney injury, creatinine up to 2.4, with septic shock, hypotension, versus possibly abdominal compartment syndrome. He has not had other active problems, has history of hypertension, hyperlipidemia. Antihypertensives on hold. NPO. SCD for DVT prophylaxis, withholding for now anticipation of urgent surgery, please resume once safe according to surgery after his procedure. He is to be admitted to intensive care unit subsequently. Continue empiric antibiotic coverage with Zosyn, vancomycin, monitor for signs of worsening renal function with antibiotic combination. (2) Septic shock: With ischemic necrosis of bowel, small bowel obstruction, possible abdominal compartment syndrome, going for emergent exploratory laparotomy. Requiring Levophed support currently 8 mcg/min. Reviewed vitals, CBC, CMP, lactic acid, EKG, my interpretation with sinus rhythm, pending official read, chest x-ray, CT abdomen pelvis, ER provider note, discussed with ER provider. In addition to the above intervention continue with empiric antibiotic coverage with Zosyn, vancomycin, monitor for risk of worsening renal function with LORRAINE with antibiotic combination. Monitor intake and output. Follow-up lactic acid. Follow-up blood culture. Discussed with surgery, they will also request for central line to be placed in OR. (3) Small bowel obstruction: With abdominal distention, vomiting, inability to have oral intake, with ischemic necrosis small bowel as above, with pneumatosis. Additional assessment and management as above with emergent exploratory laparotomy. NPO. NGT being placed for decompression. Likely may require staged procedure with being left open after initial surgery. (4) Acute kidney injury: Reviewed BUN, creatinine, bicarb, potassium, noted creatinine up to 2.4, baseline appears 1.2. Suspect prerenal secondary to septic shock, but possible abdominal compartment syndrome. Going for emergent exploratory laparotomy. Maintain hemodynamic support. Levophed per protocol. Maintain MAP 65 mmHg or above. Hold antihypertensives. Hold statin, check CK. Check magnesium, phosphorus. Urinalysis is ordered and pending. No obstructive uropathy on CT. (5) Hypokalemia: Received supplementation. Follow-up chemistry. Check magnesium. (6) Respiratory failure with hypoxia: Acute respiratory failure with hypoxia requiring 10 L high flow cannula oxygen, with tachypnea at 30 breaths/min, sats in the high 80s with abdominal distention, relative hypoventilation. Otherwise without respiratory symptoms, without cough, shortness of breath, chest pain no leg swelling to suggest VTE related disease. No known underlying lung disease. (7) Status post right hemicolectomy: For concerning polyps on March 31 in [place]. Plan HTN: Hold antihypertensives HLD: Hold statin. Check CK. Attestations 2 Medical Necessity Statement*: Admission of over 2 midnights anticipated for assessment of management of ischemic necrosis of bowel, small bowel obstruction after right hemicolectomy 2 weeks ago, with septic shock, acute kidney injury, hypoxic respiratory failure. Coding Level of Care Code Critical Care >/= 30 minutes Critical care time (in minutes): 40 The high probability of a clinically significant, sudden or life threatening deterioration, as referenced in this documentation, required my full and direct attention, intervention and personal management. The critical care time shown is in addition to time spent performing any reported separately billable procedures and includes the following: [x] Data and vital sign review and interpretation [x ] Patient assessment, examination and intervention [x] Medication orders and management [x] Patient/Family updates as able [x] Care Coordination and Documentation. Diagnoses Ischemic necrosis of small bowel K55.029 Septic shock A41.9; R65.21 Small bowel obstruction K56.609 Acute kidney injury N17.9 Hypokalemia E87.6 Respiratory failure with hypoxia J96.91 Status post right hemicolectomy Z90.49
[2024-04-13 04:28] LABS: Creatine Phosphokinase 46 U/L (39-308)
[2024-04-13 04:42] LABS: ABG PH Result 7.32 (7.35-7.45); Arterial Blood Gas Hematocrit 34.3 % (42-52); Base Excess ABG -6.5 mmol/L (-2.0-2.0); Blood Gas Operator Identificat MONRO; Blood Gas Sample Site Not specified; Blood Gas Sample Type Arterial; Oxygen Device VENT; PO2 FiO2 Ratio Arterial Blood 195
--- NOTE | 2024-04-13 04:50 | PC.NURSE ---
Patient had moderate liquid bowel movement prior to surgery prep. Patient clean and dry prior to surgery.
--- NOTE | 2024-04-13 05:22 | ANES.PROC ---
Anesthesia Procedures Procedure/Date: 04/13/24 Bronchoscopy Procedure Narrative: Patient immediately experiencing emesis following induction, prior to intubation. Patient was suctioned out as quickly as possible. ETT placed with small amount of GI contents in tube. SpO2 dropped following intubation. Bronchoscopy was performed using flexible fiberoptic bronc. Patient did not have any visible stomach contents in either the right or left side. Verified ETT placement above winston. ABG was drawn following art line placement. pH 7.32, PaO2 195, pCO2 37, HCO3 19.
--- NOTE | 2024-04-13 06:29 | P.OP_ITS ---
Operative Report Date of procedure: April 13, 2024 Pre-op diagnosis: Small bowel obstruction with intestinal ischemia Post-op diagnosis: Small bowel obstruction Post-op findings: No evidence of ischemic or necrotic bowel, omentum had been used to wrap around anastomosis and this was adhesed to the bowel in the right lower quadrant, this omentum was bluntly removed and excised and it appears to be devitalized. No evidence of anastomotic leak, no evidence of transition point up to the level of the anastomosis. Colon was palpated and appeared normal. Procedure done: Reopening of recent laparotomy, partial omentectomy Specimens removed/disposition: Portion of omentum Surgeon: Aaron Junior MD Estimated blood loss: 50 Complications: None apparent Brief History: This is a 73-year-old male who presented to the hospital with septic shock in the setting of a small bowel obstruction after recent right hemicolectomy. CT scan showed evidence of pneumatosis intestinalis and portal venous gas. With this findings we decided to proceed with the OR with the suspected diagnosis of small bowel obstruction with possible bowel ischemia. Procedure: Patient was brought into the OR, he was placed in a supine position. General anesthesia was given. The abdomen was prepped and draped in the usual sterile fashion. A timeout was conducted. The abdomen was entered via midline laparotomy measuring about 20 cm, the incision was deepened to the level of the fascia, in the suprapubic location previous PDS sutures were noted and were removed. After removal of the sutures we were able to bluntly opened abdominal cavity, I then proceeded to extend the incision on the fascia to occupy the whole length of the incision. Turbid peritoneal fluid was immediately drained, culture swabs were obtained. I then proceeded to eviscerate the small bowel, I started to run the bowel starting at the ligament of Treitz and almost at the level of the enterocolonic anastomosis there were some additions from the bowel to a portion of omentum that had been used to wrap the anastomosis. I was able to bluntly remove this adhesions. In order to evaluate the anastomosis the remaining portion of the omentum wrapping this area was also bluntly removed, the portion of the omentum appears devitalized and therefore it was resected using LigaSure. I then proceeded to evaluate anastomosis, there was no evidence of leakage, there was no purulence around anastomosis. I then proceeded to evaluate the whole colon no evidence of obstruction was noted at any point. Finally I checked the stomach and verified the position of the NG tube and vis ualize the duodenum which showed no evidence of ischemia. At this point since there was no evidence of acute bowel ischemia no further resection was necessary. I decided to leave a Nitin drain in the right paracolic gutter to monitor for the possibility of further development of anastomotic leakage. The drain was liver through the right lower quadrant and fixed with #2 nylon. The abdomen was then irrigated in all quadrants, a total of 6 L of saline were used. I then pulled down the omentum to cover the small bowel and proceeded to close the fascia using #1 looped PDS. The closure was done with no tension. The subcutaneous tissue was irrigated and subsequently closed with vasile. Sterile dressing was applied. At the end of the procedure all counts were correct, the patient tolerated well the procedure and was transferred to the ICU in critical but stable condition.
--- NOTE | 2024-04-13 06:45 | ANES.PROC ---
Anesthesia Procedures Procedure/Date: 04/13/24 Central Venous Insert: Central Venous Line: RIJ CVC Time Out Performed: Yes Consent: requested by attending/covering physician and from patient Central Line: New Anesthesia monitors: pulse oximetry, EKG, BP cuff and oxygen Vein cannulated: right internal jugular Ultrasound used: to identify patency to vessel Post procedure: Obtain Chest X-Ray
--- NOTE | 2024-04-13 06:52 | XRR_ITS ---
PROCEDURE INFORMATION: Exam: XR Chest Exam date and time: 04/13/2024 7:26 AM Age: 73 years old Clinical indication: Device placement; Other: Central line and og placement; Additional info: Line placement central and og TECHNIQUE: Imaging protocol: Radiologic exam of the chest. Views: 1 view. COMPARISON: CR (CHEST, ) 04/12/2024 11:33 PM FINDINGS: Tubes, catheters and devices: Tip of the feeding tube is in the stomach at the level of the pylorus. Tip of the ET tube is 3 cm proximal to the winston. Right internal jugular central line tip is at the superior cavoatrial junction. Lungs: Poor inspiratory effort. Bibasilar atelectasis and right upper lung zone atelectasis. Pleural spaces: Unremarkable. No pleural effusion. No pneumothorax. Heart/Mediastinum: Unremarkable. No cardiomegaly. Bones/joints: Moderate degenerative disease of bilateral acromioclavicular joints. XR/XR chest 1V portable [id number] IMPRESSION: Tubes and lines are in satisfactory positions.
--- NOTE | 2024-04-13 07:00 | ANE.PACU2 ---
Inpatient post-anesthesia follow up: Airway intact: Yes (ETT in place) Vital signs: Temperature 97.6 F Pulse Rate 97 Respiratory Rate 30 Blood Pressure 89/57 Pulse Oximetry 89 Oxygen Delivery Me thod High Flow Nasal Ca nnula Oxygen Flow Rate 10 Fraction of Inspir ed Oxygen Hydration adequate: Yes Nausea and vomiting: No Pain level: Other Mental status: Baseline Additional Comments: intubated and sedated in ICU
--- NOTE | 2024-04-13 07:08 | PC.NURSE ---
1840 Recieved patient from pacu/ OR. Patient unresponsive, on ventilator 60% rate 16 peep 10, o2 saturation 90, rt at bedside adjusting vent settings. ET tube 8.0 23 at teeth. bp soft 80-90/60 with map 65-70. Patient with Lt nare ng in place clamped. right IJ tripple lumen central catheter noted in place, report has not been xray verified. ( same with ng). Patient with levophed 20 mcg/min infusing via peripheral iv in left ac, second left upper arm piv noted. Lungs diminished, abd soft with vasile midline - dressing over site. BRITTANY drain to right lower quadrant, positive suction noted with scan red tinged drainage. right wrist with Art line in place. Carey noted with scant yellow urine in bag. Patient hooked up to monitors and appears sedated/ comfortable at this time. Dr. Young called due to soft bp, and sedation medications orders needed. fentanyl ordered and vasopressin if needed, no propofol at this time due to blood pressures. T 97.7 Sinus rhythm on monitor. Report given at bedside to Trino RN. Restraints given to Trino to apply. Medications fentanyl and vasopressin pulled from accudose and given to Trino RN at bedside.
[2024-04-13] MEDS: vasopressin 40 UNIT/100 ML PREMIX 4.5 UNIT IV (07:24)
[2024-04-13] MEDS: norepinephrine 4 MG/250 ML BAG 60 MG IV ×2 (07:55→17:55)
[2024-04-13] MEDS: fentaNYL 1,000 MCG/100 ML BAG 2.5 MCG IV (07:55)
--- NOTE | 2024-04-13 07:56 | P.PHAVANC_ITS ---
Vancomycin Goal - Goal Vancomycin Goal:: 15-20 mg/L Vancomycin Indication:: Other (EMPIRIC THERAPY) - Therapy Current therapy:: Pip/Tazo Day of therpy:: Day 1 of [] Actual body weight (kg): 187 lb [place] body weight: 66.1 Dosing weight (kg): 84.9 - Data Labs: WBC 14.01 10^3/uL (3.29-11.43) H 04/12/24 21:40 RBC 5.00 10^6/uL (3.85-5.65) 04/12/24 21:40 Hgb 14.50 g/dL (11.27-16.99) 04/12/24 21:40 Hct 44.3 % (37-53) 04/12/24 21:40 MCV 88.6 fl (82-101) 04/12/24 21:40 MCH 29.0 pg (27-33) 04/12/24 21:40 MCHC 32.7 g/dL (30-55) 04/12/24 21:40 RDW 14.3 % (12.1-15.1) 04/12/24 21:40 Sodium 139 mmol/L (136-145) 04/12/24 21:40 Potassium 3.0 mmol/L (3.5-5.1) L 04/12/24 21:40 Chloride 92 mmol/L (98-107) L 04/12/24 21:40 Carbon Dioxide 27 mmol/L (22-29) 04/12/24 21:40 Anion Gap 23.0 (5-19) H 04/12/24 21:40 BUN 55 mg/dL (8-23) H 04/12/24 21:40 Creatinine 2.4 mg/dL (0.7-1.2) H 04/12/24 21:40 GFR Calculation Not Reportable 04/12/24 21:40 Last dialysis session:: N/A Treatment plan:: new consult Regimen:: TELEPHARMACY NOTE: Predicted PK 1000 mg IV Q24hr (infused over 1 hr) AUC/CRISTINE 571 mcg*hr/mL (goal 400 to 600 mcg*hr/mL) Peak 30 mcg/mL Trough 18.5 mcg/mL LOADING DOSE X 1 OF 1250 MG GIVEN IN ER AGREE TO CONTINUE THIS MAINTENANCE DOSE Follow up:: WILL CONTINUE TO MONITOR AND FOLLOW UP DAILY
[2024-04-13] MEDS: albuterol 2.5 mg/3 mL Neb INHALATION ×3 (08:50→20:34)
[2024-04-13] MEDS: propofol 1,000 MG/100 ML INJ 2.55 MG IV (09:19)
[2024-04-13 09:42] LABS: ABG PCO2 34.7 mmHg (35-45); ABG PH Result 7.34 (7.35-7.45); Alveolar-Arterial Oxygen Gradi 5.1 mmHg (5-10); Arterial Blood Gas Hematocrit 39.4 % (42-52); Base Excess ABG -6.5 mmol/L (-2.0-2.0); Blood Gas Sample Site ALINE; Blood Gas Sample Type Arterial; Carboxyhemoglobin 0.7 %THgb (0.4-20.1); HCO3 ABG 18.6 mmol/L (22-26); HGB O2 Sat 91.2 % (95-100); Methemoglobin 0.6 % (0.4-1.5); Oxygen Saturation ABG 92.4; PO2 ABG 67.5 mmHg (80.0-100.0); Potassium Level - ABG 2.7 mmol/L (3.5-5.0); Total Hemoglobin 12.8 g/dL (14-18)
[2024-04-13] MEDS: fluconazole premix 200 MG/100 ML PREMIX 100 MG IV (10:06)
[2024-04-13] MEDS: pantoprazole 40 mg SDV IVP (10:08)
[2024-04-13 10:26] LABS: Oxygen Device vent
[2024-04-13 10:27] LABS: Blood Gas Tidal Volume 450
[2024-04-13 10:37] LABS: Lactic Sepsis W/Reflex 2.4 mmol/L (0.5-2.2)
[2024-04-13 10:39] LABS: Blood Urea Nitrogen 56 mg/dL (8-23); Carbon Dioxide 20 mmol/L (22-29); Chloride 104 mmol/L (98-107); Glucose 208 mg/dL (65-115); Osmolality Calculated 312 mOsm/kg (285-295); Sodium 140 mmol/L (136-145)
[2024-04-13 10:41] LABS: Calcium 5.8 mg/dL (8.5-10.5)
[2024-04-13 10:44] LABS: Basophils % 0.1 %; Hematocrit 39.8 % (37-53); Lymphocytes # 0.8 10^3/uL (0.8-4.8); Lymphocytes % 6.1 %; Magnesium 2.2 mg/dL (1.7-2.3); Mean Corpuscular HGB Conc 32.2 g/dL (30-55); Mean Corpuscular Volume 93.2 fl (82-101); Mean Platelet Volume 10.5 fL (7.4-10.4); Monocytes # 0.5 10^3/uL (0.2-0.9); Monocytes % 3.7 %; Neutrophils # 11.95 10^3/uL (1.8-7.7); Neutrophils % 89.4 %; Nucleated Red Blood Cells % 0 %; Platelet Count 376 10^3/cmm (157-399); Red Blood Count 4.27 10^6/uL (3.85-5.65); Red Cell Distribution Width 14.8 % (12.1-15.1); White Blood Count 13.37 10^3/uL (3.29-11.43)
[2024-04-13] MEDS: norepinephrine 4 MG/250 ML BAG 52.5 MG IV (11:06)
[2024-04-13] MEDS: calcium gluconate 0.9% NaCL 1 GM/50 ML PREMIX IV (11:06)
[2024-04-13 12:05] LABS: Reflex Lactate Order REFLEX LACTIC ORDERD
[2024-04-13] MEDS: piperacillin-tazobactam 3.375 GM in sodium chloride 0.9% (plus) 50 ML IV ×2 (12:10→23:53)
[2024-04-13 12:37] LABS: Bilirubin Urine Negative (Negative); Blood Urine 2+ (Negative); Glucose Urine UA Negative (Normal); Ketones Urine Negative (Negative); Leukocyte Esterase Urine Trace (Negative); Nitrate Urine Negative (Negative); Protein Urine 2+ (Negative); Specific Gravity, Urine 1.028 (1.005-1.030); Urine Appearance Cloudy (CLEAR); Urine Color Dark Yellow (Yellow)
[2024-04-13 12:43] LABS: Add Urine Microscopic? YES; Hyaline Casts Urine 38.04 /lpf; RBC Urine 21-50 /hpf (0-2); WBC Urine 0-5 /hpf (0-5)
[2024-04-13 12:53] LABS: Bacteria Urine 2+ /hpf; UA Slide Review UA Slide Review Perf
[2024-04-13 12:55] LABS: Add Urine Culture? Yes; Amorphous Sediment Urine 1+ /hpf; Coarse Granular Casts Urine 15-25 /lpf; Fine Granular Casts Urine 0-4 /lpf; Mucus Urine TRACE /hpf
[2024-04-13 12:58] LABS: ABG PCO2 34.7 mmHg (35-45); ABG PH Result 7.35 (7.35-7.45); Alveolar-Arterial Oxygen Gradi 76.8 mmHg (5-10); Arterial Blood Gas Hematocrit 35.9 % (42-52); Base Excess ABG -5.6 mmol/L (-2.0-2.0); Blood Gas Operator Identificat CAK; Blood Gas Sample Site ALINE; Blood Gas Sample Type Arterial; Blood Gas Tidal Volume 0.45; Carboxyhemoglobin 0.6 %THgb (0.4-20.1); HCO3 ABG 19.3 mmol/L (22-26); HGB O2 Sat 93.3 % (95-100); Methemoglobin 1.5 % (0.4-1.5); Oxygen Device VENT; Oxygen Saturation ABG 95.3; PO2 ABG 77.5 mmHg (80.0-100.0); PO2 FiO2 Ratio Arterial Blood 77; Potassium Level - ABG 3.4 mmol/L (3.5-5.0); Total Hemoglobin 11.7 g/dL (14-18)
--- NOTE | 2024-04-13 13:17 | PC.NURSE ---
Addendum entered by Trino Juarez RN 04/13/24 14:55: After 1L bolus was completed, patient was started on 100ml.hr of sodium bicarb maintenance fluids. Levophed also increaed form 18 to 20 mcg. patient is still on vaso at 0.03 units/min. Nurse alerted Dr Xiong and received orders to start epinephrine drip, and reduce levophed is able. Nurse also expressed concerns regarding fluid volume overload in the future. CUrrently with all continuous drips (fentanyl, sodium bicarb, levophed, and vasopressin) patient's hourly intake is approximately 195ml/hr, plus there are occasional antibiotics and her received a 1L bolus today. Urine output is an average of 35mL/hr today. Original Note: Despite increasing levophed while also decreasing propofol, patient has continued to have low maps. Nurse alerted Dr Xiong. Recieved orders for 1L NS bolus.
[2024-04-13 13:24] LABS: Basophils % 0.2 %; Hematocrit 34.1 % (37-53); Lymphocytes # 0.7 10^3/uL (0.8-4.8); Lymphocytes % 4.5 %; Mean Corpuscular Hemoglobin 29.9 pg (27-33); Mean Corpuscular Volume 93.7 fl (82-101); Mean Platelet Volume 10.2 fL (7.4-10.4); Monocytes # 0.8 10^3/uL (0.2-0.9); Monocytes % 5.1 %; Neutrophils # 13.12 10^3/uL (1.8-7.7); Neutrophils % 89.4 %; Nucleated Red Blood Cells % 0.1 %; Platelet Count 324 10^3/cmm (157-399); Red Blood Count 3.64 10^6/uL (3.85-5.65); Red Cell Distribution Width 14.8 % (12.1-15.1); White Blood Count 14.68 10^3/uL (3.29-11.43)
[2024-04-13 13:31] LABS: Blood Gas Operator Identificat CAK
[2024-04-13] MEDS: sodium bicarbonate 150 MEQ in dextrose 5% 1,000 ML 100 MEQ IV (13:45)
--- NOTE | 2024-04-13 13:48 | W.PM.EVENTAC ---
Event Note Event Note: Overnight events noted Currently patient is on fentanyl, I have added propofol He is on vasopressin and Levophed I have given him 2 g calcium gluconate Requested bicarb drip to be started once we replenish his potassium which will be around 2 PM Patient is still in shock MAP around 60 to 65 mmHg Currently on PEEP of 5 which has been readjusted to 10 Decreased FiO2 after ABG done at noon BP FiO2 mobility decreased locality PE
[2024-04-13] MEDS: hydrocortisone 100 mg/2 mL SDV IVP (14:04)
[2024-04-13] MEDS: calcium gluconate 0.1 gm/mL 10% SDV 10mL 2 GM IVP (14:08)
[2024-04-13] MEDS: MICAFUNGIN IV (14:32)
[2024-04-13] MEDS: SODIUM CHLORIDE 0.9% IV (14:32)
[2024-04-13] MEDS: norepinephrine 4 MG/250 ML BAG 67.5 MG IV ×2 (14:36→21:37)
[2024-04-13] MEDS: fentaNYL 1,000 MCG/100 ML BAG 15 MCG IV (14:40)
[2024-04-13] MEDS: EPINEPHrine 2.5 MG in sodium chloride 0.9% 250 ML 6.06 MG IV (15:32)
--- NOTE | 2024-04-13 17:16 | PC.NURSE ---
Addendum entered by Trino Juarez RN 04/13/24 17:29: Patient has been on minimal sedation throughout the day due to low blood pressures. Near end of shift family visited and he woke up to their voice. He was able to answer yes/no questions by nodding head. Nurse explained why he is here and what is happening. Patients appears to understand. Original Note: Shift SUmmary: Difficulty maintaining Blood pressure. At beginning of shift, patient was on 20mcg of levophed, remains on high amounts of levophed, also has vasopressin and epinephrine started. 1L NS bolus given and started on Sodium bicarb @ 100mL/hr. Nurse has concerns for FVO in the future, due to multiple pressors, maintenance fluids, and boluses needed to maintain blood pressure, and occaisonal antiobiotics, hourly input has been significantly higher than output. Maps below 65 were frequently observed during the day before blood pressure was stabilized. 500mL of urine output 90mL of serosanguinous BRITTANY drain output.
[2024-04-13 18:15] LABS: Alanine Aminotransferase 12 U/L (0-41); Albumin Level 2.4 g/dL (3.5-5.2); Alkaline Phosphatase 42 U/L (40-130); Anion Gap 14.2 (5-19); Aspartate Amino Transferase 17 U/L (0-40); Blood Urea Nitrogen 48 mg/dL (8-23); Calcium 6.7 mg/dL (8.5-10.5); Carbon Dioxide 20 mmol/L (22-29); Chloride 101 mmol/L (98-107); Globulin 2.2 g/dL (1.3-4.6); Glucose 259 mg/dL (65-115); Osmolality Calculated 296 mOsm/kg (285-295); Potassium 3.2 mmol/L (3.5-5.1); Sodium 132 mmol/L (136-145); Total Bilirubin 0.8 mg/dL (0.15-1.2); Total Protein 4.6 g/dL (6.6-8.7)
--- NOTE | 2024-04-13 19:00 | PC.NURSE ---
Propofol Upon assessment of patient, propofol administering at 10 mcg/kg/min while MAR displayed paused. MAR updated to reflect administration.
[2024-04-13] MEDS: fentaNYL 1,000 MCG/100 ML BAG 20 MCG IV (20:57)
[2024-04-13 22:50] LABS: Anion Gap 15.8 (5-19); Blood Urea Nitrogen 43 mg/dL (8-23); Calcium 6.6 mg/dL (8.5-10.5); Carbon Dioxide 22 mmol/L (22-29); Chloride 104 mmol/L (98-107); Creatinine Clr Calc Pharmacy 46.5044; Glucose 298 mg/dL (65-115); Osmolality Calculated 308 mOsm/kg (285-295); Potassium 3.8 mmol/L (3.5-5.1); Sodium 138 mmol/L (136-145)
[2024-04-13 23:47] LABS: Glucose Point of Care 283 mg/dL (70-110)
[2024-04-14] VITALS (74 sets, daily range): BP systolic 82–139; BP diastolic 54–81; PULSE 77–97; RESP 16–17; TEMP 36.7–37.6; O2SAT 94–98
--- NOTE | 2024-04-14 00:33 | PC.NURSE ---
Insulin/Arterial Line Patient's arterial line pressures reading lower than automatic cuff with a dampened waveform. Arterial line zeroed, flushed, and redressed with no improvement. Manual blood pressure checked, matching automatic cuff. Dr. Young notified and blood pressure medications titrated according to automatic cuff. Patient's blood sugar also 283. Dr. Young notified; order placed by physician for insulin sliding scale.
[2024-04-14 00:47] LABS: Glucose Point of Care 265 mg/dL (70-110)
[2024-04-14] MEDS: vancomycin 1,000 MG in sodium chloride 0.9% 250 ML 250 MG IV (00:47)
[2024-04-14] MEDS: insulin lispro 100 unit/1 mL SUBCUT ×2 (01:07→05:13)
[2024-04-14] MEDS: sodium bicarbonate 150 MEQ in dextrose 5% 1,000 ML 100 MEQ IV (01:12)
[2024-04-14] MEDS: vasopressin 40 UNIT/100 ML PREMIX 4.5 UNIT IV ×2 (01:27→23:27)
[2024-04-14] MEDS: norepinephrine 4 MG/250 ML BAG 45 MG IV (01:33)
[2024-04-14] MEDS: fentaNYL 1,000 MCG/100 ML BAG 20 MCG IV (01:52)
[2024-04-14] MEDS: chlorhexidine gluconate 4% Btl 118 mL 1 APPLIC TOPICAL ×2 (02:01→23:23)
[2024-04-14] MEDS: propofol 1,000 MG/100 ML INJ 10.18 MG IV ×2 (02:35→11:05)
--- NOTE | 2024-04-14 04:00 | XRR_ITS ---
PROCEDURE INFORMATION: Exam: XR Chest Exam date and time: 04/14/2024 3:55 AM Age: 73 years old Clinical indication: Condition or disease; Lung condition and disease; Patient HX: Aspiration pneumonia. Intuabted with central line in place. ; Additional info: Asp pna TECHNIQUE: Imaging protocol: Radiologic exam of the chest. Views: 1 view. COMPARISON: CR (CHEST, ) 04/13/2024 7:26 AM FINDINGS: Tubes, catheters and devices: Endotracheal tube projects 2.0 cm from the winston. Enteric tube traverses midline with catheter tip and side fenestration not within field of view. Right internal jugular central venous line with catheter tip terminating about the level of the superior right atrium. Lungs: Interval worsening of patchy airspace disease, [id number]-right. Pleural spaces: Unremarkable. No pleural effusion. No pneumothorax. Heart/Mediastinum: Unremarkable. No cardiomegaly. Diaphragm: Stable right diaphragm eventration. Bones/joints: Diffuse degenerative change of the visualized osseous structures. XR/XR chest 1V portable [id number] IMPRESSION: 1. Medical devices as above. 2. Worsening airspace infiltration, [id number]-right.
[2024-04-14] MEDS: albuterol 2.5 mg/3 mL Neb INHALATION ×3 (04:50→14:28)
[2024-04-14 05:30] LABS: Hematocrit 31.6 % (37-53); Mean Corpuscular HGB Conc 32.6 g/dL (30-55); Mean Corpuscular Hemoglobin 29.8 pg (27-33); Mean Corpuscular Volume 91.3 fl (82-101); Mean Platelet Volume 10.5 fL (7.4-10.4); Platelet Count 280 10^3/cmm (157-399); Red Blood Count 3.46 10^6/uL (3.85-5.65); Red Cell Distribution Width 15.1 % (12.1-15.1); White Blood Count 20.34 10^3/uL (3.29-11.43)
[2024-04-14 05:31] LABS: Blood Gas Operator Identificat SAM; Blood Gas Sample Site Brachial, right; Blood Gas Sample Type Arterial; Oxygen Device VENT
[2024-04-14] MEDS: EPINEPHrine 2.5 MG in sodium chloride 0.9% 250 ML 18.18 MG IV (05:42)
[2024-04-14 05:47] LABS: ABG PCO2 40.2 mmHg (35-45); ABG PH Result 7.43 (7.35-7.45); Arterial Blood Gas Hematocrit 31.8 % (42-52); Base Excess ABG 1.9 mmol/L (-2.0-2.0); HCO3 ABG 26.4 mmol/L (22-26); PO2 ABG 84.7 mmHg (80.0-100.0); PO2 FiO2 Ratio Arterial Blood 141
[2024-04-14 05:50] LABS: Alanine Aminotransferase 13 U/L (0-41); Albumin Level 2.3 g/dL (3.5-5.2); Alkaline Phosphatase 62 U/L (40-130); Anion Gap 10.8 (5-19); Aspartate Amino Transferase 17 U/L (0-40); Blood Urea Nitrogen 37 mg/dL (8-23); Calcium 6.4 mg/dL (8.5-10.5); Carbon Dioxide 26 mmol/L (22-29); Chloride 101 mmol/L (98-107); Globulin 2.2 g/dL (1.3-4.6); Glucose 224 mg/dL (65-115); Magnesium 2.2 mg/dL (1.7-2.3); Osmolality Calculated 296 mOsm/kg (285-295); Sodium 135 mmol/L (136-145); Total Bilirubin 0.7 mg/dL (0.15-1.2); Total Protein 4.5 g/dL (6.6-8.7)
[2024-04-14 05:54] LABS: Slide Review Slide Review Perform
[2024-04-14 06:03] LABS: Potassium 2.8 mmol/L (3.5-5.1)
[2024-04-14 06:23] LABS: Absolute Neutrophil 15.7 10^3/cmm (1.4-6.5); Band Neutrophils Absolute 4.7 10^3/cmm (0.0-1.2); Eosinophils 0 %; Lymphocytes 6 %; Lymphocytes Absolute 1.2 10^3/cmm (1.2-3.4); Monocytes Absolute 0.8 10^3/cmm (0.1-0.6); Platelet Estimate Normal (Normal); Segmented Neutrophils 54 %; Total Cells Counted 100 (0-100)
[2024-04-14] MEDS: lidocaine 1% 5 ML in potassium chloride premix 100 ML 52.5 ML IV (06:43)
[2024-04-14] MEDS: fentaNYL 1,000 MCG/100 ML BAG 17.5 MCG IV (07:03)
[2024-04-14] MEDS: norepinephrine 4 MG/250 ML BAG 37.5 MG IV ×2 (07:56→13:40)
[2024-04-14 08:09] LABS: Glucose Point of Care 219 mg/dL (70-110)
[2024-04-14] MEDS: pantoprazole 40 mg SDV IVP (08:11)
[2024-04-14] MEDS: sodium chloride 0.9% 500 ML IV (08:42)
[2024-04-14] MEDS: calcium gluconate 0.9% NaCL 1 GM/50 ML PREMIX IV ×2 (08:46→09:48)
[2024-04-14] MEDS: potassium phosphate (mEq K) 40 MEQ in sodium chloride 0.9% (100 ml) 100 ML 27.27 MEQ IV (08:51)
--- NOTE | 2024-04-14 10:38 | USCV_ITS ---
Carlitos Aden Age: 73 Gender: M : 1950 Exam Date: 04/14/2024 09:21 Ordering Phys: Giuseppe Xiong MD Technologist: Exam Location: [facility] [place] Indication: ? ef BP: 119 / 74 HR: 78 Rhythm: Sinus Technical Quality: Adequate MEASUREMENTS (Male / Female) Normal Values 2D ECHO LV Diastolic Diameter PLAX 4.4 cm 4.2 - 5.9 / 3.9 - 5.3 cm IVS Diastolic Thickness 1.0 cm 0.6 - 1.0 / 0.6 - 0.9 cm IVS Systolic Thickness 1.8 cm LVPW Diastolic Thickness 1.1 cm 0.6 - 1.0 / 0.6 - 0.9 cm LVPW Systolic Thickness 1.8 cm LVOT Diameter 2.1 cm LV Ejection Fraction 2D Teich 69.0 % LV Ejection Fraction MOD 4C 69.1 % LV Ejection Fraction MOD 2C 70.8 % LV Ejection Fraction 2C AL 72.5 % LA Diameter 3.7 cm RA Systolic Volume 4C AL 21.7 ml RA Systolic Volume 4C MOD 20.6 ml LA Sys Volume AL 53.5 cm cubed LA Sys Volume Index AL 28.9 cm cubed/m squared Aorta at Sinotubular Diameter 2.8 cm M-MODE LA Ao Ratio MM 1.4 AV Cusp Separation MM 2.3 cm DOPPLER AV Peak Velocity 140.0 cm/s LVOT Peak Velocity 79.0 cm/s AV Area Cont Eq vti 1.9 cm squared AV Area Cont Eq pk 1.9 cm squared MV Peak Velocity 63.0 cm/s MV Area PHT 4.9 cm squared Mitral E to A Ratio 0.9 TV Peak Velocity 214.0 cm/s TR Peak Velocity 263.0 cm/s TR Peak Gradient 27.7 mmHg TV Peak E Velocity 83.0 cm/s Right Atrial Pressure 3.0 mmHg Pulmonary Artery Systolic Pressu 30.7 mmHg PV Peak Velocity 98.0 cm/s FINDINGS Left Ventricle Normal LV size and ejection fraction of 69%. No regional wall motion abnormalities. Right Ventricle Normal RV size and ejection fraction Right Atrium There appears to be some extrinsic compression of the right atrium. Left Atrium The left atrium is normal in size. Mitral Valve No gross abnormalities noted Aortic Valve Thickened aortic valve. Tricuspid Valve Trace tricuspid valve regurgitation. Pulmonic Valve Pulmonic valve not well visualized. Pericardium No significant pericardial effusion. Aorta Normal aortic annulus size. IVC Inferior vena cava not visualized. CONCLUSIONS Normal LV size and ejection fraction of 69%. No regional wall motion abnormalities. Normal cardiac chamber sizes. The right atrium appears to have some extrinsic compression. Because of the technical difficulties, this cannot be ascertained. Consider CT of the chest, if clinically indicated. There is no pericardial effusion. There are no intracardiac masses. Trace tricuspid valve regurgitation. Estimated pulmonary artery peak systolic pressure 31 mmHg No similar previous studies are available for comparison Dr Kaiden Beltran MD FAC (Electronically Signed) Final Date: 15 April 2024 09:24 S
[2024-04-14 10:47] LABS: Anion Gap 10.7 (5-19); Blood Urea Nitrogen 34 mg/dL (8-23); Calcium 6.8 mg/dL (8.5-10.5); Carbon Dioxide 26 mmol/L (22-29); Chloride 103 mmol/L (98-107); Creatinine Clr Calc Pharmacy 58.6028; Glucose 157 mg/dL (65-115); Osmolality Calculated 293 mOsm/kg (285-295); Potassium 3.7 mmol/L (3.5-5.1); Sodium 136 mmol/L (136-145)
--- NOTE | 2024-04-14 10:55 | P.PN_ITS ---
Subjective 2 Subjective: This is a 73-year-old male who was admitted to the hospital with possible small bowel obstruction with bowel ischemia in the setting of recent right hemicolectomy. He was taken to the OR for exploratory laparotomy, at the time of exploration there was no evidence of active ischemia and the small bowel appeared healthy there anastomosis did not appear to be leaking, drain was left in place and patient was closed. Over the last 24 hours has been stable has still require pressure support with 3 different pressors but hemodynamics appear to be improving his oxygenation appears to be improving as well. NG tube is in place and output has been 600 over the last 24 hours. No bowel movement since he arrived to the ICU. Vitals/I&O/Wt Last Vital Signs Temp 98.8 F 04/14/24 08:00 Pulse 94 04/14/24 10:30 Resp 16 04/14/24 10:45 BP 109/67 04/14/24 10:30 Pulse Ox 97 04/14/24 10:45 O2 Del Method Mechanical Ventilation 04/14/24 10:30 O2 Flow Rate 10 04/13/24 03:30 FiO2 60 04/14/24 10:45 04/13/24 04/14/24 04/14/24 22:59 06:59 14:59 Intake Total 843.000 / 3776.894 2376.439 / 6153.333 1021.871 / 1021.871 Output Total 880 / 1190 1115 / 2305 Balance -37.000 / 2586.894 1261.439 / 3848.333 1021.871 / 1021.871 Weight last 48 hrs Weight 191 lb 12.835 oz Weight 188 lb 7.924 oz Weight 187 lb Physical Exam 2 Narrative: Patient is intubated and sedated, at the moment does not follow commands ? NG tube is in place with bilious output ? Abdomen is soft, minimally distended, BRITTANY drain is in place with serosanguineous output. Urinary Catheter Management: Carey: Cath Placed During This Visit: yes Reason for Continuing Indwelling Catheter: Accurate Measurement of Urinary Output in Critically Ill Patients Urinary Catheter Date of Insertion: 04/13/24 Urinary Catheter Time of Insertion: 04:35 Data 04/14/24 05:08 04/14/24 10:04 Micro: Microbiology 04/13/24 04:54 Gram Stain - Final Peritoneal Fluid Anaerobic Culture - Preliminary 04/12/24 12:15 Urine Culture - Preliminary Urine,Clean Catch 04/12/24 22:37 Blood Culture - Preliminary Blood NEGATIVE TO DATE 04/12/24 22:27 Blood Culture - Preliminary Blood NEGATIVE TO DATE 04/13/24 08:03 Gram Stain - Final Sputum - Endotracheal Tube Aspirate A&P Assessment and plan (1) Status post right hemicolectomy: (2) Small bowel obstruction: (3) Septic shock: Plan 73-year-old male who was admitted with septic shock and possible small bowel obstruction after recent right knee colectomy done in outside institution. He went to the OR for exploratory laparotomy no evidence of necrosis was noted in the bowel despite initial CT scan read of pneumatosis and evidence of portal venous gas. And the possibility. The patient has required 3 pressors to maintain blood pressure, remains intubated and sedated. White count has trended up to 20.3, there is no clear source of infection at this time as no significant findings were noted during initial aspiration. We will continue to follow-up with the medical team who is guiding the intensive care management. At the moment he is stable from the surgical standpoint, no additional procedures are planned in the next 24 to 48 hours. Attestations 2 Medical Necessity Statement*: Per medical team Coding Level of Care Code Acute Code for Chg Fwd Diagnoses Status post right hemicolectomy Z90.49 Small bowel obstruction K56.609 Septic shock A41.9; R65.21
[2024-04-14] MEDS: piperacillin-tazobactam 3.375 GM in sodium chloride 0.9% (plus) 50 ML IV ×2 (11:16→18:01)
[2024-04-14 11:27] LABS: Glucose Point of Care 128 mg/dL (70-110)
--- NOTE | 2024-04-14 11:41 | P.PN_ITS ---
Subjective 2 Subjective: NG tube with 600 mL output Currently on 3 pressors which we are weaning off FiO2 60% with PEEP of 10 Afebrile Leukocytosis is secondary to stress dose steroids we have administered yesterday This morning he will get K-Phos, calcium gluconate, Potassium supplementation 40 mill equivalent on top of 20 that was given in the morning Repeat BMP in the afternoon Urine output about 1 L overnight He was given Lasix No bowel movement Drain with 30 to 50 mL of serous discharge Vitals/I&O/Wt Last Vital Signs Temp 98.1 F 04/14/24 11:00 Pulse 93 04/14/24 11:00 Resp 16 04/14/24 11:00 BP 103/62 04/14/24 11:00 Pulse Ox 96 04/14/24 11:00 O2 Del Method Mechanical Ventilation 04/14/24 11:00 O2 Flow Rate 10 04/13/24 03:30 FiO2 50 04/14/24 11:00 04/13/24 04/14/24 04/14/24 22:59 06:59 14:59 Intake Total 843.000 / 3776.894 2376.439 / 6153.333 1234.449 / 1234.449 Output Total 880 / 1190 1115 / 2305 130 / 130 Balance -37.000 / 2586.894 1261.439 / 3848.333 1104.449 / 1104.449 Weight last 48 hrs Weight 87 kg Weight 85.5 kg Weight 84.822 kg Physical Exam 2 Narrative: Patient intubated sedated On 3 pressors Skin color seems to be normal Lower extremity no significant edema on no signs of ischemia Bilateral breath sounds are clear no rhonchi noted today Patient is heavily sedated FiO2 60% PEEP 10 Urinary Catheter Management: Carey: Cath Placed During This Visit: yes Reason for Continuing Indwelling Catheter: Accurate Measurement of Urinary Output in Critically Ill Patients Urinary Catheter Date of Insertion: 04/13/24 Urinary Catheter Time of Insertion: 04:35 Data 04/14/24 05:08 04/14/24 10:04 Micro: Microbiology 04/13/24 04:54 Gram Stain - Final Peritoneal Fluid Anaerobic Culture - Preliminary Body Fluid Culture - Preliminary 04/13/24 08:03 Gram Stain - Final Sputum - Endotracheal Tube Aspirate Sputum Culture - Preliminary Gram Negative Rods 04/12/24 12:15 Urine Culture - Preliminary Urine,Clean Catch 04/12/24 22:37 Blood Culture - Preliminary Blood NEGATIVE TO DATE 04/12/24 22:27 Blood Culture - Preliminary Blood NEGATIVE TO DATE A&P Assessment and plan (1) Ischemic necrosis of small bowel: (2) Small bowel obstruction: (3) Status post right hemicolectomy: (4) Small bowel obstruction: (5) Acute kidney injury: (6) Hypokalemia: (7) Septic shock: (8) Respiratory failure with hypoxia: (9) Hypokalemia: (10) Metabolic acidosis: Plan Septic shock Aspiration pneumonia Continue broad-spectrum antibiotics Wean off vasopressors No need of stress to steroids today Calcium to be replenished Bicarb improved turned on bicarb drip SBO recent hemicolectomy No sign of ischemic bowel or necrosis as per general surgery Continue antifungal and antibiotics for now Respiratory failure requiring mechanical ventilation Patient aspirated during intubation perioperatively X-ray shows worsening of left infiltrate Intubated and sedated LORRAINE: Improved with hydration Lasix was given which improved his urine output yesterday Full code Once we are able to wean off pressors then will do weaning trial Currently PEEP is at 10 FiO2 60%, Metabolic acidosis: Bicarb drip turned off Hypokalemia: Replenished Hypophosphatemia: Replenished Attestations 2 Medical Necessity Statement*: Continue ICU management Coding Level of Care Code Critical Care >/= 30 minutes Critical care time (in minutes): 30 The high probability of a clinically significant, sudden or life threatening deterioration, as referenced in this documentation, required my full and direct attention, intervention and personal management. The critical care time shown is in addition to time spent performing any reported separately billable procedures and includes the following: [x] Data and vital sign review and interpretation [x ] Patient assessment, examination and intervention [x] Medication orders and management [x] Patient/Family updates as able [x] Care Coordination and Documentation. Diagnoses Ischemic necrosis of small bowel K55.029 Small bowel obstruction K56.609 Status post right hemicolectomy Z90.49 Acute kidney injury N17.9 Hypokalemia E87.6 Septic shock A41.9; R65.21 Respiratory failure with hypoxia J96.91 Metabolic acidosis E87.20
[2024-04-14] MEDS: lactated ringers 500 ML 999 ML IV (12:09)
[2024-04-14] MEDS: fentaNYL 1,000 MCG/100 ML BAG 15 MCG IV ×2 (13:40→19:58)
[2024-04-14] MEDS: SODIUM CHLORIDE 0.9% IV (15:00)
[2024-04-14] MEDS: MICAFUNGIN IV (15:00)
[2024-04-14 15:56] LABS: Anion Gap 11.5 (5-19); Blood Urea Nitrogen 31 mg/dL (8-23); Calcium 6.4 mg/dL (8.5-10.5); Carbon Dioxide 27 mmol/L (22-29); Chloride 105 mmol/L (98-107); Creatinine Clr Calc Pharmacy 63.9303; Glucose 147 mg/dL (65-115); Osmolality Calculated 299 mOsm/kg (285-295); Potassium 3.5 mmol/L (3.5-5.1); Sodium 140 mmol/L (136-145)
--- NOTE | 2024-04-14 16:06 | PC.NURSE ---
Epi drip down to 9. MAR shows infused.
--- NOTE | 2024-04-14 17:34 | PC.NURSE ---
Epi titrated to 7
[2024-04-14 17:59] LABS: Glucose Point of Care 139 mg/dL (70-110)
[2024-04-14] MEDS: norepinephrine 4 MG/250 ML BAG 30 MG IV (20:41)
[2024-04-14] MEDS: propofol 1,000 MG/100 ML INJ 15.27 MG IV (21:12)
[2024-04-14 22:11] LABS: Blood Urea Nitrogen 28 mg/dL (8-23); Calcium 6.4 mg/dL (8.5-10.5); Chloride 101 mmol/L (98-107); Glucose 161 mg/dL (65-115); Osmolality Calculated 289 mOsm/kg (285-295); Potassium 3.2 mmol/L (3.5-5.1); Sodium 135 mmol/L (136-145)
[2024-04-14 23:16] LABS: Anion Gap 11.2 (5-19); Carbon Dioxide 26 mmol/L (22-29)
[2024-04-14 23:24] LABS: Glucose Point of Care 136 mg/dL (70-110)
[2024-04-15] VITALS (55 sets, daily range): BP systolic 78–123; BP diastolic 49–77; PULSE 80–99; RESP 16–28; TEMP 36.8–37.9; O2SAT 89–98; BMI 30.1
[2024-04-15] MEDS: vancomycin 1,250 MG/250 ML PIGGYBACK 166.67 MG IV (00:47)
[2024-04-15] MEDS: fentaNYL 1,000 MCG/100 ML BAG 15 MCG IV ×2 (02:35→08:58)
[2024-04-15] MEDS: piperacillin-tazobactam 3.375 GM in sodium chloride 0.9% (plus) 50 ML IV ×3 (02:55→18:59)
[2024-04-15] MEDS: propofol 1,000 MG/100 ML INJ 15.27 MG IV (03:28)
[2024-04-15 04:41] LABS: Basophils # 0.1 10^3/uL (0.0-0.1); Basophils % 0.5 %; Eosinophils # 0.1 10^3/uL (0.0-0.8); Eosinophils % 0.9 %; Hematocrit 30.9 % (37-53); Mean Corpuscular Hemoglobin 28.9 pg (27-33); Mean Corpuscular Volume 90.4 fl (82-101); Mean Platelet Volume 10.5 fL (7.4-10.4); Monocytes # 0.8 10^3/uL (0.2-0.9); Monocytes % 6.6 %; Neutrophils # 9.56 10^3/uL (1.8-7.7); Neutrophils % 82.2 %; Nucleated Red Blood Cells % 0 %; Platelet Count 238 10^3/cmm (157-399); Red Blood Count 3.42 10^6/uL (3.85-5.65); Red Cell Distribution Width 15.3 % (12.1-15.1); White Blood Count 11.62 10^3/uL (3.29-11.43)
[2024-04-15 05:00] LABS: Alanine Aminotransferase 12 U/L (0-41); Albumin Level 2.2 g/dL (3.5-5.2); Alkaline Phosphatase 85 U/L (40-130); Anion Gap 12.9 (5-19); Aspartate Amino Transferase 18 U/L (0-40); Blood Urea Nitrogen 25 mg/dL (8-23); Calcium 6.3 mg/dL (8.5-10.5); Carbon Dioxide 25 mmol/L (22-29); Chloride 101 mmol/L (98-107); Glucose 131 mg/dL (65-115); Osmolality Calculated 288 mOsm/kg (285-295); Sodium 136 mmol/L (136-145); Total Bilirubin 0.9 mg/dL (0.15-1.2); Total Protein 4.2 g/dL (6.6-8.7)
[2024-04-15 05:04] LABS: Potassium 2.9 mmol/L (3.5-5.1)
[2024-04-15 05:13] LABS: Glucose Point of Care 129 mg/dL (70-110)
[2024-04-15 05:23] LABS: Slide Review Slide Review Perform
[2024-04-15] MEDS: lidocaine 1% 5 ML in potassium chloride premix 100 ML 26.25 ML IV ×2 (05:50→09:38)
[2024-04-15] MEDS: norepinephrine 4 MG/250 ML BAG 37.5 MG IV (06:56)
[2024-04-15] MEDS: albuterol 2.5 mg/3 mL Neb INHALATION (08:20)
--- NOTE | 2024-04-15 08:38 | P.PN_ITS ---
Subjective 2 Subjective: This is a 73-year-old male who was admitted to the hospital with possible small bowel obstruction with bowel ischemia in the setting of recent right hemicolectomy. He was taken to the OR for exploratory laparotomy, at the time of exploration there was no evidence of active ischemia and the small bowel appeared healthy there anastomosis did not appear to be leaking, drain was left in place and patient was closed. He is postoperative day 2 now. Has remained stable over the last 24 hours, has woken up and follow some commands, has had 2 bowel movements liquid over the last 24 hours, NG output remains bilious. BRITTANY output serosanguineous. Vitals/I&O/Wt Last Vital Signs Temp 100.3 F H 04/15/24 04:00 Pulse 91 04/15/24 08:28 Resp 17 04/15/24 08:22 BP 103/66 04/15/24 06:00 Pulse Ox 96 04/15/24 08:22 O2 Del Method Mechanical Ventilation 04/15/24 08:20 O2 Flow Rate 04/13/24 03:30 FiO2 40 04/15/24 08:22 04/14/24 04/15/24 04/15/24 22:59 06:59 14:59 Intake Total 669.000 / 3483.8736 776.692 / 4260.5656 50 / 50 Output Total 940 / 1070 825 / 1895 Balance -271.000 / 2413.8736 -48.308 / 2365.5656 50 / 50 Weight last 48 hrs Weight 192 lb 3.889 oz Weight 191 lb 12.835 oz Weight 188 lb 7.924 oz Physical Exam 2 Narrative: Patient is sedated and intubated. GI: OTHER: Abdomen is soft, tenderness unable to be assessed as patient is intubated, BRITTANY drain with serosanguineous output Urinary Catheter Management: Carey: Cath Placed During This Visit: yes Reason for Continuing Indwelling Catheter: Accurate Measurement of Urinary Output in Critically Ill Patients Urinary Catheter Date of Insertion: 04/13/24 Urinary Catheter Time of Insertion: 04:35 Data 04/15/24 04:15 04/15/24 04:15 Micro: Microbiology 04/12/24 12:15 Urine Culture - Final Urine,Clean Catch 04/13/24 08:03 Gram Stain - Final Sputum - Endotracheal Tube Aspirate Sputum Culture - Final Escherichia coli 04/13/24 04:54 Gram Stain - Final Peritoneal Fluid Anaerobic Culture - Preliminary Body Fluid Culture - Preliminary A&P Assessment and plan (1) Ischemic necrosis of small bowel: (2) Status post right hemicolectomy: (3) Small bowel obstruction: Plan Patient has shown good progression over the last 24 hours, hemodynamics have improved and pressor requirement has reduced, his abdomen exam is stable and BRITTANY drain output is serosanguineous. He has had 2 bowel movements have been liquid in consistency. NG output is still around 600-800 daily. He is white count is down to 11 today, elevation noted yesterday likely from steroid use. We will continue to monitor abdominal examination but at the moment he remains stable from the general surgery standpoint, recommend that we continue with NG tube to low intermittent suction at least for another 24 hours. Respiratory and intensive care management by primary team is appreciated. Attestations 2 Medical Necessity Statement*: Per medical team Coding Level of Care Code Acute Code for [facility] Diagnoses Ischemic necrosis of small bowel K55.029 Status post right hemicolectomy Z90.49 Small bowel obstruction K56.609
[2024-04-15 09:18] LABS: C.Diff PCR (Lab) POSITIVE (Negative); Clostridioides Difficile Toxin POSITIVE (Negative)
[2024-04-15] MEDS: sodium chloride 0.9% 1,000 ML 999 ML IV (09:23)
[2024-04-15] MEDS: pantoprazole 40 mg SDV IVP (09:23)
[2024-04-15 10:01] LABS: Anion Gap 12.7 (5-19); Blood Urea Nitrogen 24 mg/dL (8-23); Calcium 6.1 mg/dL (8.5-10.5); Carbon Dioxide 25 mmol/L (22-29); Chloride 104 mmol/L (98-107); Glucose 118 mg/dL (65-115); Osmolality Calculated 291 mOsm/kg (285-295); Potassium 3.7 mmol/L (3.5-5.1); Sodium 138 mmol/L (136-145)
[2024-04-15 12:33] LABS: Glucose Point of Care 93 mg/dL (70-110)
[2024-04-15] MEDS: vancomycin 125 mg Capsule PO ×3 (12:53→20:27)
--- NOTE | 2024-04-15 12:53 | P.PN_ITS ---
Subjective 2 Subjective: Patient extubated to 6 L nasal cannula today Levophed has been weaned off, currently at 4 mics Given fluid bolus this morning as well C. difficile positive started p.o. vancomycin NG to be continued Art line to be removed Remove Carey catheter by tomorrow Patient to work with PT once NG tube is removed Vitals/I&O/Wt Last Vital Signs Temp 99.5 F 04/15/24 10:00 Pulse 82 04/15/24 10:00 Resp 20 H 04/15/24 11:17 BP 85/60 04/15/24 10:00 Pulse Ox 92 04/15/24 11:17 O2 Del Method Mechanical Ventilation 04/15/24 10:00 O2 Flow Rate 10 04/13/24 03:30 FiO2 30 04/15/24 11:17 04/14/24 04/15/24 04/15/24 22:59 06:59 14:59 Intake Total 669.000 / 3483.8736 776.692 / 4260.5656 470.309 / 470.309 Output Total 940 / 1070 825 / 1895 240 / 240 Balance -271.000 / 2413.8736 -48.308 / 2365.5656 230.309 / 230.309 Weight last 48 hrs Weight 87.2 kg Weight 87 kg Physical Exam 2 Narrative: Pleasant cooperative Currently on 6 L Bilateral bedside no active rhonchi, mild crackles at the base Currently on 6 L nasal cannula Pleasant and cooperative Abdominal wound without any active signs of infection Lower extremity no significant edema Body feels warm Patient able to follow commands Nonfocal neuroexam S1, S2 Urinary Catheter Management: Carey: Cath Placed During This Visit: yes Reason for Continuing Indwelling Catheter: Accurate Measurement of Urinary Output in Critically Ill Patients Urinary Catheter Date of Insertion: 04/13/24 Urinary Catheter Time of Insertion: 04:35 Data 04/15/24 04:15 04/15/24 09:36 Micro: Microbiology 04/13/24 04:54 Gram Stain - Final Peritoneal Fluid Anaerobic Culture - Preliminary Body Fluid Culture - Preliminary 04/12/24 12:15 Urine Culture - Final Urine,Clean Catch 04/13/24 08:03 Gram Stain - Final Sputum - Endotracheal Tube Aspirate Sputum Culture - Final Escherichia coli A&P Assessment and plan (1) Ischemic necrosis of small bowel: (2) Small bowel obstruction: (3) Status post right hemicolectomy: (4) Small bowel obstruction: (5) Acute kidney injury: (6) Hypokalemia: (7) Septic shock: (8) Respiratory failure with hypoxia: (9) Hypokalemia: (10) Metabolic acidosis: Plan Septic shock Aspiration pneumonia Discontinue vancomycin C. difficile positive For aspiration pneumonia continue Zosyn SBO recent hemicolectomy Discontinue micafungin No active signs of necrosis of bowel C. difficile positive Start p.o. vancomycin C. difficile colitis Continue p.o. vancomycin Respiratory failure requiring mechanical ventilation Extubated 04/15 6 Lnasal cannula LORRAINE: Creatinine back to normal Full code Metabolic acidosis: Bicarb drip turned off Hypokalemia: Replenished Hypophosphatemia: Replenished Start PT once NG tube is discontinued Continue NG tube for now Attestations 2 Medical Necessity Statement*: Continue medical management Coding Level of Care Code Critical Care >/= 30 minutes Critical care time (in minutes): 30 The high probability of a clinically significant, sudden or life threatening deterioration, as referenced in this documentation, required my full and direct attention, intervention and personal management. The critical care time shown is in addition to time spent performing any reported separately billable procedures and includes the following: [x] Data and vital sign review and interpretation [x ] Patient assessment, examination and intervention [x] Medication orders and management [x] Patient/Family updates as able [x] Care Coordination and Documentation. Diagnoses Ischemic necrosis of small bowel K55.029 Small bowel obstruction K56.609 Status post right hemicolectomy Z90.49 Acute kidney injury N17.9 Hypokalemia E87.6 Septic shock A41.9; R65.21 Respiratory failure with hypoxia J96.91 Metabolic acidosis E87.20
[2024-04-15] MEDS: dextrose 5%-sod chloride 0.9% 1,000 ML 75 ML IV (13:10)
[2024-04-15] MEDS: albumin 12.5 GM/250 ML VIAL IV (13:13)
--- NOTE | 2024-04-15 15:23 | PC.NUTR ---
Consult for TPN received. Recommend beginning @ 12mls/hr and increasing 15 mls Q8H until goal rate of 42mls/hr is reached to include MV and standard electrolytes. Details in RD assessment.
[2024-04-15] MEDS: norepinephrine 4 MG/250 ML BAG 15 MG IV (15:52)
--- NOTE | 2024-04-15 16:18 | PC.NURSE ---
Patient was extubated at 1140 successfully. RT was at bedside and did the extubation successfully.
--- NOTE | 2024-04-15 16:34 | PC.NURSE ---
Addendum entered by Janice Valadez RN 04/15/24 17:02: witnessed waste Original Note: This nurse and Janice HERNADEZ waisted: Propofol- 6mls Fentanyl- 25 mls
[2024-04-15] MEDS: saliva stimulant spray 30 mL Btl 1 SPRAY MUCOUS MEM (16:56)
[2024-04-15 17:25] LABS: Glucose Point of Care 105 mg/dL (70-110)
[2024-04-15] MEDS: AA-Dex 8%-10% w/ lytes 1,000 ML with multivitamin inj 10 ML 12 ML IV (18:58)
[2024-04-15] MEDS: morphine 4 mg/mL SDV 1 mL 2 MG IVP ×2 (19:05→23:56)
[2024-04-16] VITALS (69 sets, daily range): BP systolic 75–135; BP diastolic 47–89; PULSE 73–93; RESP 14–45; TEMP 36.6–36.9; O2SAT 88–98
[2024-04-16 01:11] LABS: Glucose Point of Care 102 mg/dL (70-110)
--- NOTE | 2024-04-16 01:39 | PC.NURSE ---
Patient pulled NG tube at aprox. 2145. Dr. Junior notified about an hour later, and advised to leave NG tube out unless patient gets nausea or vomits.
[2024-04-16] MEDS: dextrose 5%-sod chloride 0.9% 1,000 ML 75 ML IV ×2 (02:28→15:44)
[2024-04-16] MEDS: piperacillin-tazobactam 3.375 GM in sodium chloride 0.9% (plus) 50 ML IV ×3 (02:46→17:52)
[2024-04-16 03:20] LABS: Basophils # 0.1 10^3/uL (0.0-0.1); Basophils % 0.9 %; Eosinophils # 0.1 10^3/uL (0.0-0.8); Eosinophils % 0.7 %; Hematocrit 30.3 % (37-53); Lymphocytes # 0.9 10^3/uL (0.8-4.8); Lymphocytes % 7.5 %; Mean Corpuscular HGB Conc 33.3 g/dL (30-55); Mean Corpuscular Hemoglobin 30.1 pg (27-33); Mean Corpuscular Volume 90.4 fl (82-101); Mean Platelet Volume 10.2 fL (7.4-10.4); Monocytes # 0.6 10^3/uL (0.2-0.9); Monocytes % 5.3 %; Neutrophils # 9.87 10^3/uL (1.8-7.7); Neutrophils % 84.7 %; Nucleated Red Blood Cells % 0 %; Platelet Count 207 10^3/cmm (157-399); Red Blood Count 3.35 10^6/uL (3.85-5.65); Red Cell Distribution Width 15.2 % (12.1-15.1); White Blood Count 11.66 10^3/uL (3.29-11.43)
[2024-04-16 03:50] LABS: Alanine Aminotransferase 14 U/L (0-41); Albumin Level 2.3 g/dL (3.5-5.2); Alkaline Phosphatase 160 U/L (40-130); Anion Gap 11.4 (5-19); Aspartate Amino Transferase 41 U/L (0-40); Blood Urea Nitrogen 15 mg/dL (8-23); Calcium 6.2 mg/dL (8.5-10.5); Carbon Dioxide 25 mmol/L (22-29); Chloride 112 mmol/L (98-107); Creatinine Clr Calc Pharmacy 87.9986; Glucose 122 mg/dL (65-115); Osmolality Calculated 302 mOsm/kg (285-295); Potassium 3.4 mmol/L (3.5-5.1); Sodium 145 mmol/L (136-145); Total Bilirubin 1.4 mg/dL (0.15-1.2); Total Protein 4.3 g/dL (6.6-8.7)
[2024-04-16 05:39] LABS: Glucose Point of Care 110 mg/dL (70-110)
--- NOTE | 2024-04-16 07:56 | P.PN_ITS ---
Subjective 2 Subjective: This is a 73-year-old male who was admitted to the hospital with possible small bowel obstruction with bowel ischemia in the setting of recent right hemicolectomy. He was taken to the OR for exploratory laparotomy, at the time of exploration there was no evidence of active ischemia and the small bowel appeared healthy there anastomosis did not appear to be leaking, drain was left in place and patient was closed. He is postoperative day 3 now. Has remained stable over the last 24 hours, was extubated, has been able to maintain blood pressure. Has remained afebrile. This morning mentation status has not completely recover he is oriented to person but not to time or place. NG tube was removed by patient overnight Vitals/I&O/Wt Last Vital Signs Temp 98.2 F 04/16/24 04:00 Pulse 77 04/16/24 06:30 Resp 27 H 04/16/24 06:00 BP 135/76 04/16/24 06:00 Pulse Ox 96 04/16/24 06:00 O2 Del Method Nasal Cannula 04/16/24 04:00 O2 Flow Rate 6 04/16/24 04:00 FiO2 30 04/15/24 11:17 04/15/24 04/16/24 04/16/24 22:59 06:59 14:59 Intake Total 170.75 / 448.988 6536.15 / 2055.584 Output Total 1025 / 1455 425 / 1880 50 / 50 Balance -854.25 / -696.566 872.15 / 175.584 -50 / -50 Weight last 48 hrs Weight 185 lb 3.013 oz Weight 192 lb 3.889 oz Physical Exam 2 GI: OTHER: Abdomen is soft, minimally distended, appropriately tender, surgical incision is healing very well, BRITTANY output has been serous Urinary Catheter Management: Carey: Cath Placed During This Visit: yes, but has since been removed by the nurse Reason for Continuing Indwelling Catheter: Decision to DC Catheter Urinary Catheter Date of Insertion: 04/13/24 Urinary Catheter Time of Insertion: 04:35 Date Urinary Catheter Removed: 04/15/24 Time Urinary Catheter Discontinued: 18:33 Data 04/16/24 03:05 04/16/24 03:05 Micro: Microbiology 04/13/24 04:54 Gram Stain - Final Peritoneal Fluid Anaerobic Culture - Preliminary Body Fluid Culture - Preliminary 04/12/24 12:15 Urine Culture - Final Urine,Clean Catch 04/13/24 08:03 Gram Stain - Final Sputum - Endotracheal Tube Aspirate Sputum Culture - Final Escherichia coli A&P Assessment and plan (1) Small bowel obstruction: (2) Status post right hemicolectomy: (3) Acute kidney injury: (4) Hypokalemia: (5) Sepsis: (6) C. difficile enteritis: Plan Patient showing good progression, was extubated yesterday, hemodynamics have improved, he is kidney failure has resolved. C. difficile test was positive and he has been started on p.o. vancomycin. On my examination today abdominal exam is benign and Bowel Sounds He Has Been Having Bowel Movements I Think It Will Be Appropriate to Start Him on a Clear Liquid Diet and We Will Advance As Tolerated. BRITTANY Drain Will Likely Stay until the Patient Is Close to Discharge Attestations 2 Medical Necessity Statement*: Per medical team Coding Level of Care Code Acute Code for [facility] Diagnoses Small bowel obstruction K56.609 Status post right hemicolectomy Z90.49 Acute kidney injury N17.9 Hypokalemia E87.6 Sepsis A41.9 C. difficile enteritis A04.72
[2024-04-16] MEDS: pantoprazole 40 mg SDV IVP (09:09)
[2024-04-16] MEDS: vancomycin 125 mg Capsule PO ×4 (09:09→22:22)
--- NOTE | 2024-04-16 09:29 | PC.SOCIAL ---
IMM Update Pg. 2 of IMM updated. Copy provided at bedside. Initialed, dated, and timed copy in chart.
[2024-04-16] MEDS: albuterol 2.5 mg/3 mL Neb INHALATION (09:31)
[2024-04-16 11:20] LABS: Glucose Point of Care 116 mg/dL (70-110)
--- NOTE | 2024-04-16 11:36 | PM.PN ---
Subjective Subjective: This morning patient is awake and alert Short attention span There was concern for aspiration and choking, he has been advanced to clear liquids Speech therapy recommended another evaluation because he was a bit confused He is on 3 L nasal cannula Had 2 BMs yesterday Leukocytosis improving Potassium 3.4 Patient was asking if his has visited him, Vitals/I&O/Wt Last Vital Signs Temp 98.5 F 04/16/24 07:37 Pulse 85 04/16/24 10:00 Resp 23 H 04/16/24 10:00 BP 123/65 04/16/24 10:00 Pulse Ox 96 04/16/24 10:00 O2 Del Method Nasal Cannula 04/16/24 10:00 O2 Flow Rate 2 04/16/24 10:00 FiO2 30 04/15/24 11:17 04/15/24 04/16/24 04/16/24 22:59 06:59 14:59 Intake Total 170.75 / 064.852 5997.15 / 2055.584 Output Total 1025 / 1455 425 / 1880 450 / 450 Balance -854.25 / -696.566 872.15 / 175.584 -450 / -450 Weight last 48 hrs Weight 84 kg Weight 87.2 kg Physical Exam Narrative: positive bowel sounds BRITTANY drain in place Awake and alert Currently on 3 L bilateral breath sounds Hemodynamically stable Hemodynamically stable Laying supine Right IJ central line in place Carey catheter has been removed NG tube removed today Urinary Catheter Management: Carey: Cath Placed During This Visit: yes, but has since been removed by the nurse Reason for Continuing Indwelling Catheter: Decision to DC Catheter Urinary Catheter Date of Insertion: 04/13/24 Urinary Catheter Time of Insertion: 04:35 Date Urinary Catheter Removed: 04/15/24 Time Urinary Catheter Discontinued: 18:33 Data 04/16/24 03:05 04/16/24 03:05 Micro: Microbiology 04/13/24 04:54 Gram Stain - Final Peritoneal Fluid Anaerobic Culture - Preliminary Body Fluid Culture - Final 04/12/24 12:15 Urine Culture - Final Urine,Clean Catch 04/13/24 08:03 Gram Stain - Final Sputum - Endotracheal Tube Aspirate Sputum Culture - Final Escherichia coli A&P Assessment and plan (1) Ischemic necrosis of small bowel: (2) Small bowel obstruction: (3) Status post right hemicolectomy: (4) Small bowel obstruction: (5) Acute kidney injury: (6) Hypokalemia: (7) Septic shock: (8) Respiratory failure with hypoxia: (9) Hypokalemia: (10) Metabolic acidosis: Plan Septic shock Aspiration pneumonia Improving SBO recent hemicolectomy BRITTANY drain with minimal discharge, will be removed before discharge C. difficile colitis Continue p.o. vancomycin Respiratory failure requiring mechanical ventilation Extubated 04/15 doing well on 3 L nasal cannula LORRAINE: Creatinine back to normal Full code Metabolic acidosis: Bicarb drip turned off Hypokalemia: Give another dose of potassium IV Hypophosphatemia: Replenished NG tube discontinued today, advance to clear liquid after speech therapy consultations. Start PT out of bed to chair is okay for today Might be able to transfer by tomorrow out of ICU to [facility] Will plan for discharge home by Sunday if remains stable Attestations Medical Necessity Statement*: Continue medical management Diagnoses Ischemic necrosis of small bowel K55.029 Small bowel obstruction K56.609 Status post right hemicolectomy Z90.49 Acute kidney injury N17.9 Hypokalemia E87.6 Septic shock A41.9; R65.21 Respiratory failure with hypoxia J96.91 Metabolic acidosis E87.20
[2024-04-16] MEDS: ondansetron 2 mg/ML SDV 2 mL 4 MG IVP (12:29)
[2024-04-16 16:41] LABS: Glucose Point of Care 121 mg/dL (70-110)
[2024-04-16] MEDS: AA-Dex 8%-10% w/ lytes 1,000 ML with multivitamin inj 10 ML 42 ML IV (17:52)
[2024-04-16 22:46] LABS: Glucose Point of Care 142 mg/dL (70-110)
[2024-04-17] VITALS (42 sets, daily range): BP systolic 92–153; BP diastolic 58–85; PULSE 71–117; RESP 15–37; TEMP 36.4–36.9; O2SAT 90–97
[2024-04-17 03:25] LABS: Basophils # 0.1 10^3/uL (0.0-0.1); Basophils % 0.4 %; Eosinophils # 0.2 10^3/uL (0.0-0.8); Eosinophils % 1.5 %; Hematocrit 31.9 % (37-53); Lymphocytes % 8.3 %; Mean Corpuscular HGB Conc 32.6 g/dL (30-55); Mean Corpuscular Hemoglobin 30.1 pg (27-33); Mean Corpuscular Volume 92.5 fl (82-101); Mean Platelet Volume 9.8 fL (7.4-10.4); Monocytes # 0.7 10^3/uL (0.2-0.9); Monocytes % 5.8 %; Neutrophils # 9.56 10^3/uL (1.8-7.7); Neutrophils % 82.2 %; Nucleated Red Blood Cells % 0 %; Platelet Count 215 10^3/cmm (157-399); Red Blood Count 3.45 10^6/uL (3.85-5.65); Red Cell Distribution Width 15.2 % (12.1-15.1); White Blood Count 11.64 10^3/uL (3.29-11.43)
[2024-04-17 03:47] LABS: Anion Gap 8.6 (5-19); Blood Urea Nitrogen 13 mg/dL (8-23); Calcium 6.5 mg/dL (8.5-10.5); Carbon Dioxide 26 mmol/L (22-29); Chloride 111 mmol/L (98-107); Creatinine Clr Calc Pharmacy 86.4875; Glucose 143 mg/dL (65-115); Osmolality Calculated 299 mOsm/kg (285-295); Sodium 143 mmol/L (136-145)
[2024-04-17 03:52] LABS: Potassium 2.6 mmol/L (3.5-5.1)
--- NOTE | 2024-04-17 03:57 | PC.NURSE ---
Contacted Dr. Garcia in reference to critical lab of potassium 2.6. Received orders for IV potassium 80 meq.
[2024-04-17] MEDS: piperacillin-tazobactam 3.375 GM in sodium chloride 0.9% (plus) 50 ML IV ×2 (04:31→10:54)
[2024-04-17] MEDS: potassium chloride premix 100 ML 25 MEQ IV (04:32)
[2024-04-17 08:23] LABS: Glucose Point of Care 118 mg/dL (70-110)
[2024-04-17] MEDS: lidocaine 1% 5 ML in potassium chloride premix 100 ML 26.25 ML IV (08:46)
[2024-04-17] MEDS: vancomycin 125 mg Capsule PO ×4 (08:47→21:22)
[2024-04-17] MEDS: pantoprazole 40 mg SDV IVP (08:47)
--- NOTE | 2024-04-17 09:04 | P.PN_ITS ---
Subjective 2 Subjective: Patient has remained stable over the 24 hours, no requirement for pressor support, mental status appears to be improving. No abdominal pain, continues to have liquid bowel movements. Vitals/I&O/Wt Last Vital Signs Temp 97.8 F 04/16/24 20:00 Pulse 77 04/17/24 08:19 Resp 27 H 04/17/24 07:00 BP 133/80 04/17/24 07:00 Pulse Ox 97 04/17/24 08:19 O2 Del Method Nasal Cannula 04/16/24 22:51 O2 Flow Rate 2 04/17/24 08:19 FiO2 30 04/15/24 11:17 04/16/24 04/17/24 04/17/24 22:59 06:59 14:59 Intake Total 1230.1 / 1474.9 1000 / 2474.9 Output Total 200 / 1200 Balance 1030.1 / 274.9 1000 / 1274.9 Weight last 48 hrs Weight 185 lb 3.103 oz Weight 185 lb 3.013 oz Physical Exam 2 GI: OTHER: Abdomen soft minimally tender to palpation nondistended, surgical incision well- healed BRITTANY drain with minimal serous output. Urinary Catheter Management: Carey: Cath Placed During This Visit: yes, but has since been removed by the nurse Reason for Continuing Indwelling Catheter: Decision to DC Catheter Urinary Catheter Date of Insertion: 04/13/24 Urinary Catheter Time of Insertion: 04:35 Date Urinary Catheter Removed: 04/15/24 Time Urinary Catheter Discontinued: 18:33 Data 04/17/24 03:16 04/17/24 03:16 Micro: Microbiology 04/13/24 04:54 Gram Stain - Final Peritoneal Fluid Anaerobic Culture - Preliminary Body Fluid Culture - Final A&P Assessment and plan (1) Small bowel obstruction: (2) Status post right hemicolectomy: (3) Septic shock: (4) C. difficile enteritis: (5) Sepsis: Plan Good progression from the surgical standpoint, can advance diet as tolerated and guided by [employer]. Plan will be to remove BRITTANY drain tomorrow. He will need to continue management of C. difficile colitis by medical team. I will continue to follow on a daily basis while the patient is in-house. Plan is once he gets discharged he follows up in my clinic in 2 weeks. -Cleared to be advanced to regular diet as tolerated once authorized by [employer] -BRITTANY drain to be removed tomorrow -All other management appreciated by primary team. Attestations 2 Medical Necessity Statement*: Per medical team Coding Level of Care Code Acute Code for [facility] Diagnoses Small bowel obstruction K56.609 Status post right hemicolectomy Z90.49 Septic shock A41.9; R65.21 C. difficile enteritis A04.72 Sepsis A41.9
--- NOTE | 2024-04-17 09:13 | PM.PN ---
Subjective Subjective: Patient was a little confused sundowning with delirium This morning he is able to converse at Able to take clear liquid diet No choking or aspiration noted I will transfer him out of ICU Potassium 80 mEq to be given today Patient has had multiple loose stools in last 24 hours Blood pressure has remained stable, Vitals/I&O/Wt Last Vital Signs Temp 97.8 F 04/16/24 20:00 Pulse 77 04/17/24 08:19 Resp 27 H 04/17/24 07:00 BP 133/80 04/17/24 07:00 Pulse Ox 97 04/17/24 08:19 O2 Del Method Nasal Cannula 04/16/24 22:51 O2 Flow Rate 2 04/17/24 08:19 FiO2 30 04/15/24 11:17 04/16/24 04/17/24 04/17/24 22:59 06:59 14:59 Intake Total 1230.1 / 1474.9 1000 / 2474.9 Output Total 200 / 1200 Balance 1030.1 / 274.9 1000 / 1274.9 Weight last 48 hrs Weight 84.003 kg Weight 84 kg Physical Exam Narrative: Bilateral breath sounds Currently on 2 L GCS 15 Abdomen soft Bowel sound present No sign of edema Clinical looks dehydrated Pleasant and cooperative No active focal deficit Urinary Catheter Management: Carey: Cath Placed During This Visit: yes, but has since been removed by the nurse Reason for Continuing Indwelling Catheter: Decision to DC Catheter Urinary Catheter Date of Insertion: 04/13/24 Urinary Catheter Time of Insertion: 04:35 Date Urinary Catheter Removed: 04/15/24 Time Urinary Catheter Discontinued: 18:33 Data 04/17/24 03:16 04/17/24 03:16 Micro: Microbiology 04/13/24 04:54 Gram Stain - Final Peritoneal Fluid Anaerobic Culture - Preliminary Body Fluid Culture - Final A&P Assessment and plan (1) Ischemic necrosis of small bowel: (2) Small bowel obstruction: (3) Status post right hemicolectomy: (4) Small bowel obstruction: (5) Acute kidney injury: (6) Hypokalemia: (7) Septic shock: (8) Respiratory failure with hypoxia: (9) Hypokalemia: (10) Metabolic acidosis: Plan Septic shock Aspiration pneumonia Resolved Off Levophed Discontinue Zosyn Aspiration pneumonia treatment: Completed No fever no significant worsening leukocytosis, Zosyn discontinued SBO recent hemicolectomy BRITTANY drain with minimal discharge, will be removed by tomorrow C. difficile colitis Continue p.o. vancomycin Respiratory failure requiring mechanical ventilation Extubated 04/15 On 2 L nasal cannula LORRAINE: Creatinine back to normal Full code Metabolic acidosis: Bicarb drip turned off Hypokalemia: Will give 40 mEq another back to make it 80 mL given in 24 hours Hypophosphatemia: Replenished NG tube discontinued, will advance diet to GI soft today, he is able to tolerate clear liquid diet, no sign of aspiration at bedside evaluation physical therapy to get him out of bed to chair Physical therapy will be started Okay to transfer out of ICU to [facility] Discharge home in next 24 to 48 hours Attestations Medical Necessity Statement*: Out of ICU to [facility] Diagnoses Ischemic necrosis of small bowel K55.029 Small bowel obstruction K56.609 Status post right hemicolectomy Z90.49 Acute kidney injury N17.9 Hypokalemia E87.6 Septic shock A41.9; R65.21 Respiratory failure with hypoxia J96.91 Metabolic acidosis E87.20
[2024-04-17 10:53] LABS: Glucose Point of Care 112 mg/dL (70-110)
--- NOTE | 2024-04-17 11:14 | PC.NURSE ---
Dr. Xiong gave order to give one of the k riders he ordered to total 80 meq with the one bag already administered
--- NOTE | 2024-04-17 13:29 | PC.NURSE ---
all lines removed prior this am family visit and gone home [facility] , still pending mts release ,transfered to [facility] at this time ..teeth and personal belongings home with son this am
--- NOTE | 2024-04-17 14:35 | PC.NURSE ---
Received report on pt at 1435 from MARICARMEN Ramierz in ICU.
[2024-04-17] MEDS: magnesium oxide 400 mg tablet PO (17:24)
[2024-04-17] MEDS: AA-Dex 8%-10% w/ lytes 1,000 ML with multivitamin inj 10 ML 42 ML IV (17:25)
[2024-04-17 20:20] LABS: Glucose Point of Care 119 mg/dL (70-110)
[2024-04-17 22:57] LABS: Glucose Point of Care 118 mg/dL (70-110)
--- NOTE | 2024-04-17 23:48 | PC.NURSE ---
Guaze/drain sponges around BRITTANY drain saturated in serous drainage and changed.
[2024-04-18 04:00] VITALS: BP 121/72; PULSE 69; RESP 18; TEMP 36.5; O2SAT 94
--- NOTE | 2024-04-18 05:06 | PC.NURSE ---
Guaze/drain sponges around BRITTANY drain saturated in serous drainage and changed at this time. Due to no drainage in BRITTANY drain and drainage around BRITTANY drain, this nurse unscrewed cap and release pressure from drain, then re-pressurized drain by squeezing and screwing cap back on. Drain immediately began having drainage. A moderate sized, string-shaped blood clot returned with drainage. A total of 850 ml of serosanginous drainage returned.
[2024-04-18 05:10] LABS: Basophils % 0.2 %; Eosinophils # 0.2 10^3/uL (0.0-0.8); Eosinophils % 1.8 %; Hematocrit 32.1 % (37-53); Lymphocytes # 1.1 10^3/uL (0.8-4.8); Lymphocytes % 11.7 %; Mean Corpuscular HGB Conc 32.7 g/dL (30-55); Mean Corpuscular Hemoglobin 29.5 pg (27-33); Mean Corpuscular Volume 90.2 fl (82-101); Mean Platelet Volume 10.2 fL (7.4-10.4); Monocytes # 0.7 10^3/uL (0.2-0.9); Monocytes % 7.6 %; Neutrophils # 6.92 10^3/uL (1.8-7.7); Neutrophils % 74.1 %; Nucleated Red Blood Cells % 0 %; Platelet Count 241 10^3/cmm (157-399); Red Blood Count 3.56 10^6/uL (3.85-5.65); Red Cell Distribution Width 15.4 % (12.1-15.1); White Blood Count 9.34 10^3/uL (3.29-11.43)
[2024-04-18 05:29] LABS: Blood Urea Nitrogen 15 mg/dL (8-23); Calcium 6.3 mg/dL (8.5-10.5); Carbon Dioxide 26 mmol/L (22-29); Chloride 110 mmol/L (98-107); Creatinine Clr Calc Pharmacy 86.4889; Glucose 121 mg/dL (65-115); Osmolality Calculated 296 mOsm/kg (285-295); Sodium 142 mmol/L (136-145)
[2024-04-18 05:32] VITALS: PULSE 68
[2024-04-18 06:19] LABS: Glucose Point of Care 116 mg/dL (70-110)
[2024-04-18 07:43] VITALS: BP 144/60; PULSE 71; RESP 15; TEMP 36.4; O2SAT 94
[2024-04-18 07:59] VITALS: PULSE 77; RESP 15; O2SAT 95
[2024-04-18] MEDS: vancomycin 125 mg Capsule PO (08:19)
[2024-04-18] MEDS: pantoprazole 40 mg SDV IVP (08:19)
[2024-04-18] MEDS: magnesium oxide 400 mg tablet PO (08:19)
--- NOTE | 2024-04-18 09:16 | PM.DCS ---
Discharge Providers Date of Admission: 04/13/24 06:41 Date of Discharge: April 18, 2024 Attending Provider at Admission: Aaron Junior MD Attending Provider at Discharge: Giuseppe Xiong MD Primary Care Provider: ADELAIDA Grant Diagnoses at Discharge Discharge Diagnosis (1) Ischemic necrosis of small bowel: Status: Acute (2) Small bowel obstruction: Status: Acute (3) Status post right hemicolectomy: Status: Acute (4) Acute kidney injury: Status: Acute (5) Hypokalemia: Status: Acute (6) Septic shock: Status: Acute (7) Respiratory failure with hypoxia: Status: Acute (8) Metabolic acidosis: Status: Acute Reason for Visit Reason for Visit: Dehydrated and Passed Out Hospital Course Hospital Course 73-year-old male who present to the hospital abdominal pain, loose dark stools, vomiting he recently had a right hemicolectomy March 31, patient was hypotensive with significant lactic acidosis he was in sepsis, went to the OR for exploratory laparotomy, there were concern for small bowel obstruction with bowel ischemia in setting of recent hemicolectomy however no such findings were identified during surgery as per the surgeon, patient has a healthy anastomosis with no evidence of ischemia of small bowel, there was no apparent leakage in the peritoneum, patient vomited and aspirated perioperatively, he was intubated, he went into septic shock required 3 vasopressors, bicarb drip, we were able to gradually wean him off pressors, he remained afebrile, leukocytosis improved, creatinine improved with IV fluid hydration, we were able to successfully extubate him to 6 L nasal cannula and in next 2 to 3 days he was weaned down to room air, patient was tested positive for C. difficile, he remained on broad-spectrum antibiotics including micafungin which we discontinued once we got C. difficile positive report. He was put on p.o. vancomycin. He is tolerating his diet speech therapy advance his diet once he became alert and oriented after 1 day of extubation. His sputum is positive for E. coli which likely is from GERD source after aspiration. He has finished half days on antibiotics, no need to continue oral antibiotics other than p.o. vancomycin at the time of discharge. His drain will be removed before discharge. Physical Exam Narrative: Pleasant and cooperative GCS 15 Nonfocal neuroexam Tolerating diet Pleasant and cooperative Normotensive currently on room air Urinary Catheter Management: Carey: Cath Placed During This Visit: yes, but has since been removed by the nurse Reason for Continuing Indwelling Catheter: Decision to DC Catheter Urinary Catheter Date of Insertion: 04/13/24 Urinary Catheter Time of Insertion: 04:35 Date Urinary Catheter Removed: 04/15/24 Time Urinary Catheter Discontinued: 18:33 Discharge Data Studies Completed and Pending Completed Studies During Hospitalization Category Date Time Status CT abdomen pelvis wo con [id number] Stat Cat Scan 04/12/24 21:40 Completed CXRP [XR chest 1V portable [id number]] Stat Exams 04/12/24 23:24 Completed XR chest 1V portable [id number] Routine Exams 04/14/24 04:00 Completed XR chest 1V portable [id number] Stat Exams 04/13/24 06:52 Completed CV. echo complete* [id number] Routine Ultrasound 04/14/24 10:38 Completed Pending at discharge Category Date Time Status Anaerobic Culture Routine Lab 04/13/24 04:54 Results Body Fluid Culture & GS Routine Lab 04/13/24 04:54 Results Pathology: Surgical [PTH] Routine Pth 04/13/24 06:15 Received Radiology Impressions Abdomen/Pelvis CT 04/12/24 21:40 IMPRESSION: 1. Small bowel obstruction. Pneumatosis of the small bowel in the right lower quadrant with mesenteric venous gas and portal venous gas in the liver. Emergent surgical consultation is recommended. 2. Questionable pneumatosis in the duodenal is likely artifactual. 3. Other nonemergent findings above. ADDENDUM: 04/13/24 0153 ADDENDUM: THIS REPORT CONTAINS FINDINGS THAT MAY BE CRITICAL TO PATIENT CARE. The findings were verbally communicated via telephone conference with Dr. Travis at 1:51 AM CDT on 04/13/2024. The findings were acknowledged and understood. Chest X-Ray 04/14/24 04:00 IMPRESSION: 1. Medical devices as above. 2. Worsening airspace infiltration, [id number]. Laboratory Results WBC 9.34 10^3/uL (3.29-11.43) 04/18/24 04:56 RBC 3.56 10^6/uL (3.85-5.65) L 04/18/24 04:56 Hgb 10.50 g/dL (11.27-16.99) L 04/18/24 04:56 Hct 32.1 % (37-53) L 04/18/24 04:56 MCV 90.2 fl (82-101) 04/18/24 04:56 MCH 29.5 pg (27-33) 04/18/24 04:56 MCHC 32.7 g/dL (30-55) 04/18/24 04:56 RDW 15.4 % (12.1-15.1) H 04/18/24 04:56 Plt Count 241 10^3/cmm (157-399) 04/18/24 04:56 MPV 10.2 fL (7.4-10.4) 04/18/24 04:56 Neut % (Auto) 74.1 % 04/18/24 04:56 Lymph % (Auto) 11.7 % 04/18/24 04:56 [place] % (Auto) 7.6 % 04/18/24 04:56 Eos % (Auto) 1.8 % 04/18/24 04:56 Baso % (Auto) 0.2 % 04/18/24 04:56 Neut # (Auto) 6.92 10^3/uL (1.8-7.7) 04/18/24 04:56 Lymph # (Auto) 1.1 10^3/uL (0.8-4.8) 04/18/24 04:56 [place] # (Auto) 0.7 10^3/uL (0.2-0.9) 04/18/24 04:56 Eos # (Auto) 0.2 10^3/uL (0.0-0.8) 04/18/24 04:56 Baso # (Auto) 0.0 10^3/uL (0.0-0.1) 04/18/24 04:56 Nucleated RBC % (auto) 0 % 04/18/24 04:56 Total Counted 100 (0-100) 04/14/24 05:08 Atypical Lymphs % 0.0 % (0-5) 04/14/24 05:08 Absolute Neutrophils 15.7 10^3/cmm (1.4-6.5) H 04/14/24 05:08 Segmented Neutrophils 54 % 04/14/24 05:08 Band Neutrophils 23.0 % 04/14/24 05:08 Absolute Lymphocytes 1.2 10^3/cmm (1.2-3.4) 04/14/24 05:08 Lymphocytes (Manual) 6 % 04/14/24 05:08 Monocytes (Manual) 4.0 % 04/14/24 05:08 Absolute Monocytes 0.8 10^3/cmm (0.1-0.6) H 04/14/24 05:08 Eosinophils (Manual) 0 % 04/14/24 05:08 Absolute Eosinophils 0.0 10^3/cmm (0.0-0.7) 04/14/24 05:08 Basophils (Manual) 0.0 % 04/14/24 05:08 Absolute Basophils 0.0 10^3/cmm (0.0-0.2) 04/14/24 05:08 Metamyelocytes 13.0 % 04/14/24 05:08 Nucleated RBCs # 0.0 /100WBC 04/18/24 04:56 Platelet Estimate Normal (Normal) 04/14/24 05:08 Specimen Type Arterial 04/14/24 05:19 Sample Site Brachial, right 04/14/24 05:19 ABG pH 7.43 (7.35-7.45) 04/14/24 05:19 ABG pCO2 40.2 mmHg (35-45) 04/14/24 05:19 ABG pO2 84.7 mmHg (80.0-100.0) 04/14/24 05:19 ABG PO2/FiO2 Ratio 141 04/14/24 05:19 ABG HCO3 26.4 mmol/L (22-26) H 04/14/24 05:19 ABG O2 Saturation 95.3 04/13/24 12:47 ABG Base Excess 1.9 mmol/L (-2.0-2.0) 04/14/24 05:19 Chris Test N/a 04/14/24 05:19 A-a O2 Gradient 76.8 mmHg (5-10) H 04/13/24 12:47 Hematocrit 31.8 % (42-52) L 04/14/24 05:19 Hgb O2 Saturation 93.3 % (95-100) L 04/13/24 12:47 Carboxyhemoglobin 0.6 %THgb (0.4-20.1) 04/13/24 12:47 Methemoglobin 1.5 % (0.4-1.5) 04/13/24 12:47 Total Hemoglobin 11.7 g/dL (14-18) L 04/13/24 12:47 Sodium 135.0 mmol/L (131-143) 04/13/24 12:47 Potassium 3.4 mmol/L (3.5-5.0) L 04/13/24 12:47 Glucose 158.0 mg/dL (70-115) H 04/13/24 12:47 Ionized Calcium 1.0 mmol/L (1.1-1.4) L 04/13/24 12:47 Respiration Rate 16.0 % 04/13/24 09:31 O2 Delivery Device Vent 04/14/24 05:19 FiO2 60.0 % 04/14/24 05:19 Tidal Volume 0.45 04/13/24 12:47 PEEP 12.0 cmH20 04/14/24 05:19 Baling Machine Operator ID Saud 04/14/24 05:19 Sodium 142 mmol/L (136-145) 04/18/24 04:56 Potassium 3.0 mmol/L (3.5-5.1) L 04/18/24 04:56 Chloride 110 mmol/L (98-107) H 04/18/24 04:56 Carbon Dioxide 26 mmol/L (22-29) 04/18/24 04:56 Anion Gap 9.0 (5-19) 04/18/24 04:56 BUN 15 mg/dL (8-23) 04/18/24 04:56 Creatinine 0.7 mg/dL (0.7-1.2) 04/18/24 04:56 GFR Calculation Not Reportable 04/18/24 04:56 Glucose 121 mg/dL (65-115) H 04/18/24 04:56 POC Glucose 116 mg/dL (70-110) H 04/18/24 06:15 Calculated Osmolality 296 mOsm/kg (285-295) H 04/18/24 04:56 Lactic Acid 2.0 mmol/L (0.5-2.2) 04/14/24 05:08 Lactic Acid (Sepsis) 2.0 mmol/L (0.5-2.2) 04/13/24 13:03 Calcium 6.3 mg/dL (8.5-10.5) L 04/18/24 04:56 Phosphorus 2.0 mg/dL (2.5-4.5) L 04/14/24 05:08 Magnesium 2.2 mg/dL (1.7-2.3) 04/14/24 05:08 Total Bilirubin 1.4 mg/dL (0.15-1.2) H 04/16/24 03:05 AST 41 U/L (0-40) H 04/16/24 03:05 ALT 14 U/L (0-41) 04/16/24 03:05 Alkaline Phosphatase 160 U/L (40-130) H 04/16/24 03:05 Creatine Kinase 46 U/L (39-308) 04/12/24 21:40 Total Protein 4.3 g/dL (6.6-8.7) L 04/16/24 03:05 Albumin 2.3 g/dL (3.5-5.2) L 04/16/24 03:05 Globulin 2.0 g/dL (1.3-4.6) 04/16/24 03:05 Urine Color Dark yellow (Yellow) A 04/12/24 12:15 Urine Appearance Cloudy (CLEAR) A 04/12/24 12:15 Urine pH 5.0 (5-7) 04/12/24 12:15 Ur Specific [place] 1.028 (1.005-1.030) 04/12/24 12:15 Urine Protein 2+ (Negative) A 04/12/24 12:15 Urine Glucose (UA) Negative (Normal) 04/12/24 12:15 Urine Ketones Negative (Negative) 04/12/24 12:15 Urine Blood 2+ (Negative) A 04/12/24 12:15 Urine Nitrate Negative (Negative) 04/12/24 12:15 Urine Bilirubin Negative (Negative) 04/12/24 12:15 Urine Urobilinogen 1.0 mg/dL (Negative) 04/12/24 12:15 Ur Leukocyte Esterase Trace (Negative) A 04/12/24 12:15 Urine RBC 21-50 /hpf (0-2) H 04/12/24 12:15 Urine WBC 0-5 /hpf (0-5) 04/12/24 12:15 Ur Squamous Epith Cells 11-20 /hpf (0-5) 04/12/24 12:15 Amorphous Sediment 1+ /hpf 04/12/24 12:15 Urine Bacteria 2+ /hpf (NONE) H 04/12/24 12:15 Hyaline Casts 38.04 /lpf 04/12/24 12:15 Fine Granular Casts 0-4 /lpf H 04/12/24 12:15 Coarse Granular Casts 15-25 /lpf H 04/12/24 12:15 Urine Mucus Trace /hpf 04/12/24 12:15 C. difficile (PCR) Positive (Negative) H 04/15/24 07:00 C.difficile Tox Confrm Positive (Negative) H 04/15/24 07:00 Blood Type A Positive 04/12/24 21:40 Rho(D) Type Rh positive 04/12/24 21:40 Antibody Screen Negative 04/12/24 21:40 Vitals Last Vital Signs Temp 97.6 F 04/18/24 07:43 Pulse 77 04/18/24 07:59 Resp 15 04/18/24 07:59 BP 144/60 04/18/24 07:43 Pulse Ox 95 04/18/24 07:59 O2 Del Method Room Air 04/18/24 07:59 O2 Flow Rate 2 04/17/24 09:30 FiO2 30 04/15/24 11:17 Discharge Plan Discharge Patient Disposition: Home Condition: Stable Prescriptions: New vancomycin 125 mg Capsule 125 mg PO QID 10 Days Qty: 40 0RF potassium chloride 10 mEq tablet extended release 10 meq PO DAILY PRN (Reason: with diarrhea only) Qty: 14 0RF Rx Instructions: stop once diarrhea resolves cholestyramine (with sugar) 4 gram powder 4 g PO DAILY Qty: 378 0RF Rx Instructions: administer w/meal; avoid other meds within 1hr before or 4-6hr after dose magnesium oxide 400 mg (241.3 mg magnesium) Tablet 400 mg PO BID Qty: 20 0RF Continued lisinopril 40 mg tablet 40 mg PO DAILY aspirin 81 mg tablet,delayed release (DR/EC) 81 mg PO DAILY allopurinol 100 mg tablet 100 mg PO DAILY amlodipine 10 mg tablet 10 mg PO DAILY rosuvastatin 10 mg tablet 10 mg PO DAILY tamsulosin 0.4 mg capsule 1 mg PO DAILY Discharge Orders: Discharge Order (Routine); Ordered 04/18/24 Ordered By: Giuseppe iXong Referrals: Aaron Junior MD [Physician] - 2 weeks Raquel Vasquez FNP [Primary Care Provider] - Discharge Diet: GI Soft Discharge Activity: Increase activity as tolerated Patient Instructions: Acute Wound Care (DC), Altered Mental Status (ED), Opioid Safety, Post Anesthesia Care Discharge Attestations Time Spent in Discharge Care*: greater than 30 min Quality Metrics Clinical Quality Measures [ No reported AMI, CVA or VTE this stay] Coding Level of Care Code Acute Code for Chg Fwd Diagnoses Ischemic necrosis of small bowel K55.029 Small bowel obstruction K56.609 Status post right hemicolectomy Z90.49 Acute kidney injury N17.9 Hypokalemia E87.6 Septic shock A41.9; R65.21 Respiratory failure with hypoxia J96.91 Metabolic acidosis E87.20
--- NOTE | 2024-04-18 10:00 | PC.SOCIAL ---
IMM Update pg 2 of IMM Updated and reviewed w/ patient. Copy provided and copy dated, initialed and placed in chart.
--- NOTE | 2024-04-18 10:54 | PC.NURSE ---
Removes IJ per protocol. Tolerates well. Dr. Junior in room to remove BRITTANY drain during this time. Tolerates well. at bedside. All questions answered at this time.
[2024-04-18 11:14] VITALS: BP 109/70; PULSE 91; RESP 15; TEMP 36.6; O2SAT 94
[2024-04-18 11:21] LABS: Glucose Point of Care 107 mg/dL (70-110)
--- NOTE | 2024-04-18 11:34 | P.PN_ITS ---
Subjective 2 Subjective: Patient doing very well this morning, mental status has significantly improved. No significant abdominal pain, no other issues. Vitals/I&O/Wt Last Vital Signs Temp 97.6 F 04/18/24 07:43 Pulse 77 04/18/24 07:59 Resp 15 04/18/24 07:59 BP 144/60 04/18/24 07:43 Pulse Ox 95 04/18/24 07:59 O2 Del Method Room Air 04/18/24 07:59 O2 Flow Rate 2 04/17/24 09:30 FiO2 30 04/15/24 11:17 04/17/24 04/18/24 04/18/24 22:59 06:59 14:59 Intake Total 1364.1 / 1564.1 Output Total 850 / 850 400 / 400 Balance 1364.1 / 1564.1 -850 / 714.1 -400 / -400 Weight last 48 hrs Weight 185 lb 4.8 oz Weight 185 lb 3.103 oz Physical Exam 2 GI: OTHER: Abdomen is soft nontender nondistended, surgical incision is healing well, there is a vasile in place, no evidence of discharge purulence or dehiscence of the wound. Right lower quadrant BRITTANY drain with only serous output, BRITTANY drain was removed in anticipation to discharge today. Urinary Catheter Management: Carey: Cath Placed During This Visit: yes, but has since been removed by the nurse Reason for Continuing Indwelling Catheter: Decision to DC Catheter Urinary Catheter Date of Insertion: 04/13/24 Urinary Catheter Time of Insertion: 04:35 Date Urinary Catheter Removed: 04/15/24 Time Urinary Catheter Discontinued: 18:33 Data 04/18/24 04:56 04/18/24 04:56 Micro: Microbiology 04/12/24 22:37 Blood Culture - Final Blood NO GROWTH AFTER 5 DAYS 04/12/24 22:27 Blood Culture - Final Blood NO GROWTH AFTER 5 DAYS 04/13/24 04:54 Gram Stain - Final Peritoneal Fluid Anaerobic Culture - Preliminary Body Fluid Culture - Final A&P Assessment and plan (1) Small bowel obstruction: (2) Ischemic necrosis of small bowel: (3) Status post right hemicolectomy: (4) Small bowel obstruction: (5) Septic shock: (6) C. difficile enteritis: Plan Patient showed a very good progression after exploratory laparotomy for small bowel obstruction with suspected of bowel ischemia in the setting of a recent right hemicolectomy for an outside facility. Patient was also found to have C. difficile colitis during this admission. Patient is now postoperative day 6, has been doing very well, his progression has been adequate, vital signs have remained stable currently afebrile, his white count trended down to normal. Wound healing has been appropriate. BRITTANY drain noted to be draining significant amount of serous fluid, no evidence of purulence, this is slightly residual fluid that accumulates in the abdomen due to significant fluid resuscitation that the patient got during this admission. I have decided to remove the BRITTANY drain in anticipation to discharge today, he will continue to follow-up with me in 2 weeks and he will see the colorectal surgeon in 1 week. Warning signs have been given. Attestations 2 Medical Necessity Statement*: Per medical team Coding Level of Care Code Acute Code for [facility] Fwd Diagnoses Small bowel obstruction K56.609 Ischemic necrosis of small bowel K55.029 Status post right hemicolectomy Z90.49 Septic shock A41.9; R65.21 C. difficile enteritis A04.72
[2024-04-18 13:26] VITALS: BP 109/70; PULSE 91; RESP 15; TEMP 36.6; O2SAT 94
== END 2024-04-18 13:26 | disposition home or self-care (01) | DRG 853 ==
LOC: ER 04-13 05:01 → ICU 04-13 06:43 → MEDSURG 04-17 15:02
PROVIDERS: Emergency Medicine; Internal Medicine; Student in an Organized Health Care Education/Training Program; Admitting Provider Surgery; Emergency Provider Nurse Practitioner; PCP Nurse Practitioner Family; Visit Provider Internal Medicine
PROC: 0DBU0ZZ Excision of Omentum, Open Approach (ICD-10-PCS; CPT 49000; principal; 2024-04-13 04:00)
DX: A41.9 Sepsis, unspecified organism (principal); J69.0 Pneumonitis due to inhalation of food and vomit; K55.029 Acute infarction of small intestine, extent unspecified; R65.21 Severe sepsis with septic shock; K56.609 Unspecified intestinal obstruction, unspecified as to partial versus complete obstruction; N17.9 Acute kidney failure, unspecified; E87.20 Acidosis, unspecified; A04.72 Enterocolitis due to Clostridium difficile, not specified as recurrent; Z90.49 Acquired absence of other specified parts of digestive tract; Z86.0100 Personal history of colon polyps, unspecified; M10.9 Gout, unspecified; I10 Essential (primary) hypertension; E78.5 Hyperlipidemia, unspecified; E86.0 Dehydration; R09.02 Hypoxemia; E87.6 Hypokalemia; B96.20 Unspecified Escherichia coli [E. coli] as the cause of diseases classified elsewhere; K21.9 Gastro-esophageal reflux disease without esophagitis; Z79.82 Long term (current) use of aspirin
CPT/HCPCS: 36415; 36416; 36592; 36600; 51702; 71045; 74176; 80048; 80051; 80053; 81001; 82330; 82550; 82803; 82805; 82962; 83605; 83735; 84100; 85007; 85025; 86850; 86900; 87040; 87070; 87075; 87086; 87186; 87205; 87324; 87493; 88305; 92507; 92523; 92526; 92610; 93005; 93306; 94002; 94003; 94640; 94799; 96365; 96366; 96367; 96372; 96375; 96376; 97110; 97116; 97161; 97167; 97530; 97535; 99285; 99291; J0171; J0330; J0612; J1100; J1450; J1720; J1815; J2250; J2270; J2371; J2405; J2470; J2543; J2598; J2704; J3010; J3370; J3480; J3490; J3535; J7030; J7040; J7042; J7050; J7070; J7120; J7613; P9045

== ENCOUNTER 2024-04-20 10:13 | Emergency (ER) | payer MEDICARE, SELFPAY ==
[2024-04-20] VITALS (11 sets, daily range): BP systolic 93–122; BP diastolic 57–75; PULSE 71–87; TEMP 36.4; O2SAT 94–98; BMI 27.6
--- NOTE | 2024-04-20 10:50 | ED_ITS ---
HPI - General Adult 2 General: Chief complaint: General Medical Stated complaint: post op not eatting dehydrated Time Seen by Provider: 04/20/24 10:16 History of Present Illness: 73-year-old man with history of recent p artial colectomy after small bowel obstruction who presents the emergency room with weakness and concern for dehydration. He has been having some diarrhea. He also has some pain with swallowing on the left side he says. Feels like this is after he had an NG tube after the surgery. Family was concerned because his color looked worse and his urine was darker. Concerned he is dehydrated. They are also concerned that his potassium may be low because of the diarrhea. He had received supplementation prior to discharge. And has been taking 10 mill equivalents a day at home. He is having no abdominal pain. He has had diarrhea but that improved some with Imodium they say. No fevers. No altered mental status. No focal motor deficits. No chest pain. No shortness of breath. He is not having any abdominal pain Related Data Home Medications Medication Instructions Recorded Confirmed allopurinol 100 mg tablet 100 mg PO DAILY 10/27/20 04/14/24 amlodipine 10 mg tablet 10 mg PO DAILY 10/27/20 04/14/24 aspirin 81 mg tablet,delayed 81 mg PO DAILY 10/27/20 04/14/24 release lisinopril 40 mg tablet 40 mg PO DAILY 10/27/20 04/14/24 rosuvastatin 10 mg tablet 10 mg PO DAILY 10/27/20 04/14/24 tamsulosin 0.4 mg capsule 1 mg PO DAILY 04/14/24 04/14/24 Previous Rx's Medication Instructions Recorded cholestyramine (with sugar) 4 gram 4 g PO DAILY #378 grams 04/18/24 oral powder magnesium oxide 400 mg (241.3 mg 400 mg PO BID #20 tabs 04/18/24 magnesium) tablet potassium chloride 10 mEq 10 meq PO DAILY PRN with diarrhea 04/18/24 tablet,extended release only #14 tabs vancomycin 125 mg capsule 125 mg PO QID 10 days #40 caps 04/18/24 Allergies Allergy/AdvReac Type Severity Reaction Status Date / Time No Known Allergies Allergy Verified 04/20/24 10:22 Review of Systems 2 Narrative: Constitutional symptoms: Negative except as documented in HPI. Skin symptoms: Negative except as documented in HPI. Eye symptoms: Negative except as documented in HPI. ENMT symptoms: Negative except as documented in HPI. Respiratory symptoms: Negative except as documented in HPI. Cardiovascular symptoms: Negative except as documented in HPI. Gastrointestinal symptoms: Negative except as documented in HPI. Genitourinary symptoms: Negative except as documented in HPI. Musculoskeletal symptoms: Negative except as documented in HPI. Neurologic symptoms: Negative except as documented in HPI. Psychiatric symptoms: Negative except as documented in HPI. Endocrine symptoms: Negative except as documented in HPI. PFSH ED 2 PFSH: Medical History HTN (hypertension) Gout Hyperlipidemia Surgical History (Updated 04/19/24 @ 00:01 by ANDREE Leiva) Status post right hemicolectomy Family History Other Cancer Social History Smoking and tobacco/nicotine status: never used tobacco/nicotine Alcohol intake: current Alcohol intake frequency: 0-2 Drinks per Day Alcohol type: beer Physical Exam 2 Narrative: EXAM NARRATIVE: General: Alert, no acute distress. Skin: Warm, dry. Head: Normocephalic, atraumatic. Neck: Supple, trachea midline. Eye: Extraocular movements are intact. Ears, nose, mouth and throat: Tacky oral mucosa Cardiovascular: Regular, Normal peripheral perfusion. Respiratory: Lungs are clear to auscultation, respirations are non-labored, breath sounds are equal, Symmetrical chest wall expansion. Gastrointestinal: Soft, Nontender, Non distended Musculoskeletal: Normal ROM, no deformity. Neurological: Alert and oriented, No focal neurological deficit observed. Psychiatric: Cooperative, appropriate mood & affect. Course 2 Vital Signs: Vital signs: Vital Signs Temperature 97.5 F L 04/20/24 10:15 Pulse Rate 85 04/20/24 10:15 Blood Pressure 93/63 04/20/24 10:15 Pulse Oximetry 95 04/20/24 10:15 Oxygen Delivery Me thod Room Air 04/20/24 10:15 MDM - General Adult Medical Decision Making Medical decision making: Differential diagnosis including but not limited to and based on the above HPI, review of systems and physical exam: Concern for dehydration, renal failure, hypokalemia. Orders placed to evaluate differential diagnosis based on the above differential, HPI and physical exam Lab Review: Laboratory results were reviewed and interpreted by myself the emergency room physician. Mild leukocytosis with a white count of 14. No renal failure. BUN and creatinine are 10 and 0.8. Potassium is low again at 2.8. I reviewed the patient's medical record. Reexamination: Patient remained stable. No increased work of breathing. No altered mental status. No focal motor deficits. Assessment and plan: Dehydration Hypokalemia ? Given the patient's difficulty in p.o. hydration a liter of fluid was given. 40 mill equivalents liquid potassium and 40 mill equivalents IV potassium are being given. Also 2 g of magnesium. - Discharged home - Discussed plan with patient. Answered any questions. - Evaluation and treatment of this problem were appropriate in the emergency setting. Lab Data 04/20/24 10:52 04/20/24 10:52 Laboratory Results WBC 14.85 10^3/uL (3.29-11.43) H 04/20/24 10:52 RBC 4.04 10^6/uL (3.85-5.65) 04/20/24 10:52 Hgb 11.70 g/dL (11.27-16.99) 04/20/24 10:52 Hct 35.8 % (37-53) L 04/20/24 10:52 MCV 88.6 fl (82-101) 04/20/24 10:52 MCH 29.0 pg (27-33) 04/20/24 10:52 MCHC 32.7 g/dL (30-55) 04/20/24 10:52 RDW 15.5 % (12.1-15.1) H 04/20/24 10:52 Plt Count 311 10^3/cmm (157-399) 04/20/24 10:52 MPV 9.7 fL (7.4-10.4) 04/20/24 10:52 Neut % (Auto) 82.9 % 04/20/24 10:52 Lymph % (Auto) 10.0 % 04/20/24 10:52 [place] % (Auto) 5.1 % 04/20/24 10:52 Eos % (Auto) 0.8 % 04/20/24 10:52 Baso % (Auto) 0.3 % 04/20/24 10:52 Neut # (Auto) 12.30 10^3/uL (1.8-7.7) H 04/20/24 10:52 Lymph # (Auto) 1.5 10^3/uL (0.8-4.8) 04/20/24 10:52 [place] # (Auto) 0.8 10^3/uL (0.2-0.9) 04/20/24 10:52 Eos # (Auto) 0.1 10^3/uL (0.0-0.8) 04/20/24 10:52 Baso # (Auto) 0.1 10^3/uL (0.0-0.1) 04/20/24 10:52 Nucleated RBC % (auto) 0 % 04/20/24 10:52 Nucleated RBCs # 0.0 /100WBC 04/20/24 10:52 Sodium 134 mmol/L (136-145) L 04/20/24 10:52 Potassium 2.8 mmol/L (3.5-5.1) L* 04/20/24 10:52 Chloride 102 mmol/L (98-107) 04/20/24 10:52 Carbon Dioxide 23 mmol/L (22-29) 04/20/24 10:52 Anion Gap 11.8 (5-19) 04/20/24 10:52 BUN 10 mg/dL (8-23) 04/20/24 10:52 Creatinine 0.8 mg/dL (0.7-1.2) 04/20/24 10:52 GFR Calculation Not Reportable 04/20/24 10:52 Glucose 102 mg/dL (65-115) 04/20/24 10:52 Calculated Osmolality 277 mOsm/kg (285-295) L 04/20/24 10:52 Calcium 6.7 mg/dL (8.5-10.5) L 04/20/24 10:52 Total Bilirubin 0.7 mg/dL (0.15-1.2) 04/20/24 10:52 AST 25 U/L (0-40) 04/20/24 10:52 ALT 24 U/L (0-41) 04/20/24 10:52 Alkaline Phosphatase 101 U/L (40-130) 04/20/24 10:52 Total Protein 4.9 g/dL (6.6-8.7) L 04/20/24 10:52 Albumin 2.6 g/dL (3.5-5.2) L 04/20/24 10:52 Globulin 2.3 g/dL (1.3-4.6) 04/20/24 10:52 No radiology studies performed this visit Discharge Plan Discharge Patient Disposition: Home Clinical Impression: Dehydration, Hypokalemia Condition: Stable Prescriptions: No Action lisinopril 40 mg tablet 40 mg PO DAILY aspirin 81 mg tablet,delayed release (DR/EC) 81 mg PO DAILY allopurinol 100 mg tablet 100 mg PO DAILY amlodipine 10 mg tablet 10 mg PO DAILY rosuvastatin 10 mg tablet 10 mg PO DAILY tamsulosin 0.4 mg capsule 1 mg PO DAILY vancomycin 125 mg Capsule 125 mg PO QID 10 Days Qty: 40 0RF magnesium oxide 400 mg (241.3 mg magnesium) Tablet 400 mg PO BID Qty: 20 0RF potassium chloride 10 mEq tablet extended release 10 meq PO DAILY PRN (Reason: with diarrhea only) Qty: 14 0RF Rx Instructions: stop once diarrhea resolves cholestyramine (with sugar) 4 gram powder 4 g PO DAILY Qty: 378 0RF Rx Instructions: administer w/meal; avoid other meds within 1hr before or 4-6hr after dose Discharge Orders: Discharge ED (Routine); Ordered 04/20/24 Ordered By: Michelle Chavez Referrals: Raquel Vasquez FNP [Primary Care Provider] - Discharge Diet: Advance as tolerated Discharge Activity: Increase activity as tolerated Patient Instructions: Dehydration (ED) Activity Restrictions/Additional Instructions: Instead of just water consider using Gatorade or rehydration mixes such as liquid IV. Thank you for choosing [facility] for your healthcare needs today. Please realize this is an emergency room and that we are providing you with a medical screening exam and this may not be complete and all inclusive of all the testing and or work up that you may need to determine your ailment or severity of your illness. You have been screened and evaluated and felt safe for discharge. Health conditions do change or evolve sometimes and as such it is important that you follow up with your Primary Doctor to be re checked, 3-5 days is a general good time frame for follow up. You are always welcome to return to the ED for re assessment if your symptoms are worsening or you have new concerns Coding Level of Care Code ED Strapper And Buffer for Sandy Daley
[2024-04-20 10:58] LABS: Basophils # 0.1 10^3/uL (0.0-0.1); Basophils % 0.3 %; Eosinophils # 0.1 10^3/uL (0.0-0.8); Eosinophils % 0.8 %; Hematocrit 35.8 % (37-53); Lymphocytes # 1.5 10^3/uL (0.8-4.8); Mean Corpuscular HGB Conc 32.7 g/dL (30-55); Mean Corpuscular Volume 88.6 fl (82-101); Mean Platelet Volume 9.7 fL (7.4-10.4); Monocytes # 0.8 10^3/uL (0.2-0.9); Monocytes % 5.1 %; Neutrophils % 82.9 %; Nucleated Red Blood Cells % 0 %; Platelet Count 311 10^3/cmm (157-399); Red Blood Count 4.04 10^6/uL (3.85-5.65); Red Cell Distribution Width 15.5 % (12.1-15.1); White Blood Count 14.85 10^3/uL (3.29-11.43)
[2024-04-20 11:24] LABS: Alanine Aminotransferase 24 U/L (0-41); Albumin Level 2.6 g/dL (3.5-5.2); Alkaline Phosphatase 101 U/L (40-130); Anion Gap 11.8 (5-19); Aspartate Amino Transferase 25 U/L (0-40); Blood Urea Nitrogen 10 mg/dL (8-23); Calcium 6.7 mg/dL (8.5-10.5); Carbon Dioxide 23 mmol/L (22-29); Chloride 102 mmol/L (98-107); Creatinine Clr Calc Pharmacy 84.5193; Globulin 2.3 g/dL (1.3-4.6); Glucose 102 mg/dL (65-115); Osmolality Calculated 277 mOsm/kg (285-295); Sodium 134 mmol/L (136-145); Total Bilirubin 0.7 mg/dL (0.15-1.2); Total Protein 4.9 g/dL (6.6-8.7)
[2024-04-20] MEDS: sodium chloride 0.9% 1,000 ML 999 ML IV ×2 (11:28→15:13)
[2024-04-20 11:29] LABS: Potassium 2.8 mmol/L (3.5-5.1)
[2024-04-20] MEDS: potassium chloride premix 100 ML 25 MEQ IV (12:30)
[2024-04-20] MEDS: potassium chloride oral liq 20 mEq/15 mL UDC 40 MEQ PO (12:37)
[2024-04-20] MEDS: magnesium sulfate premix 2 GM/50 ML PIGGYBACK IV (13:30)
== END 2024-04-20 17:05 | disposition home or self-care (01) ==
PROVIDERS: Emergency Provider Emergency Medicine; PCP Nurse Practitioner Family
DX: E86.0 Dehydration (principal); E87.6 Hypokalemia; Z79.82 Long term (current) use of aspirin; I10 Essential (primary) hypertension; E78.5 Hyperlipidemia, unspecified
CPT/HCPCS: 80053; 85025; 96365; 96366; 99284; J3475; J3480; J7030

== ENCOUNTER → 2024-04-29 10:01 | Outpatient (BNVA) | payer MEDICARE, SELFPAY | PROVIDERS: PCP Nurse Practitioner Family; Visit Provider Surgery | DX: A04.72 Enterocolitis due to Clostridium difficile, not specified as recurrent (principal); K56.609 Unspecified intestinal obstruction, unspecified as to partial versus complete obstruction; Z90.49 Acquired absence of other specified parts of digestive tract; Z98.890 Other specified postprocedural states | CPT/HCPCS: 99024 ==

== ENCOUNTER → 2024-06-11 08:53 | Outpatient (BNVA) | payer MEDICARE, SELFPAY | PROVIDERS: PCP Nurse Practitioner Family; Visit Provider Nurse Practitioner Family | DX: D36.11 Benign neoplasm of peripheral nerves and autonomic nervous system of face, head, and neck (principal); L57.8 Other skin changes due to chronic exposure to nonionizing radiation; D69.2 Other nonthrombocytopenic purpura; L82.1 Other seborrheic keratosis; L81.4 Other melanin hyperpigmentation; D22.4 Melanocytic nevi of scalp and neck; Z08 Encounter for follow-up examination after completed treatment for malignant neoplasm; Z85.820 Personal history of malignant melanoma of skin; L57.0 Actinic keratosis | CPT/HCPCS: 17000; 99214 ==

== ENCOUNTER → 2024-08-12 09:13 | Outpatient (BNVA) | payer MEDICARE, SELFPAY | PROVIDERS: PCP Nurse Practitioner Family; Visit Provider Nurse Practitioner Family | DX: D36.11 Benign neoplasm of peripheral nerves and autonomic nervous system of face, head, and neck (principal); L57.8 Other skin changes due to chronic exposure to nonionizing radiation; D69.2 Other nonthrombocytopenic purpura; L82.1 Other seborrheic keratosis; L81.4 Other melanin hyperpigmentation; D22.4 Melanocytic nevi of scalp and neck; Z08 Encounter for follow-up examination after completed treatment for malignant neoplasm; Z85.820 Personal history of malignant melanoma of skin; L57.0 Actinic keratosis | CPT/HCPCS: 17000; 99213 ==

== ENCOUNTER → 2024-12-09 09:17 | Outpatient (BNVA) | payer MEDICARE, SELFPAY | PROVIDERS: PCP Nurse Practitioner Family; Visit Provider Nurse Practitioner Family | DX: D36.11 Benign neoplasm of peripheral nerves and autonomic nervous system of face, head, and neck (principal); D22.4 Melanocytic nevi of scalp and neck; L81.4 Other melanin hyperpigmentation; L27.8 Dermatitis due to other substances taken internally; L82.1 Other seborrheic keratosis | CPT/HCPCS: 17000; 99214 ==

== ENCOUNTER → 2025-02-19 09:17 | Outpatient (BNVA) | payer MEDICARE, SELFPAY | PROVIDERS: PCP Nurse Practitioner Family; Visit Provider Nurse Practitioner Family | DX: L73.0 Acne keloid (principal); L23.9 Allergic contact dermatitis, unspecified cause; L81.4 Other melanin hyperpigmentation; L57.8 Other skin changes due to chronic exposure to nonionizing radiation; D36.11 Benign neoplasm of peripheral nerves and autonomic nervous system of face, head, and neck; L82.1 Other seborrheic keratosis; D22.4 Melanocytic nevi of scalp and neck; Z08 Encounter for follow-up examination after completed treatment for malignant neoplasm; Z85.820 Personal history of malignant melanoma of skin; D48.5 Neoplasm of uncertain behavior of skin; L57.0 Actinic keratosis | CPT/HCPCS: 11102; 17000; 99214 ==